=== PATIENT | male | born 1975 | race Caucasian/White ===

== ENCOUNTER → 2025-04-03 09:09 | Outpatient (REF) | payer BC, SELFPAY | LOC: RAD 09:09 | PROVIDERS: ATTENDING PHYSICIAN Thoracic Surgery (Cardiothoracic Vascular Surgery) | DX: Z01.810 Encounter for preprocedural cardiovascular examination (principal); I35.0 Nonrheumatic aortic (valve) stenosis | CPT/HCPCS: 75573; Q9967 ==

== ENCOUNTER 2025-04-08 06:22 | Day surgery (SDC) | payer BC, SELFPAY ==
[2025-04-08] VITALS (12 sets, daily range): BP systolic 112–149; BP diastolic 45–58; BMI 31.1
[2025-04-08] MEDS: NSS 270 ML IV (07:00)
--- NOTE | 2025-04-08 08:55 | ITS.CL.CATH ---
Adjuster - Catheterization
Cardiac Catheterization
Procedure Report:
CARDIAC CATHETERIZATION REPORT
Date of Procedure: 04/08/2025
Referring: Ignacio Valencia M.D.
INDICATION: Bicuspid aortic valve with severe aortic valve insufficiency, preop exam prior to SAVR.
PROCEDURE:
1. Left heart catheterization
2. Coronary angiography.
A total of 38 minutes of procedural/moderate sedation was utilized. An independent emergency medical technician basic was present to assist with and help manage the patient's level of consciousness and physiologic status.
ACCESS:
1. 6 [place]awk right bradycardia artery using a modified Seldinger technique under ultrasound guidance. The right radial artery is laterally displaced, nearly on the lateral aspect of his distal radius.
CATHETERS:
1. 5 [place] JR4.
2. 5 [place] JL 3.5.
HEMODYNAMIC DATA
Weight (kg): 89.8
AO (s/d/x, mmHg): 139/67/96
LV (s/x mmHg): 140/19 (A wave to 35)
AV gradient (x, mmHg): None.
LEFT VENTRICULOGRAPHY: Not performed.
CORONARY ANGIOGRAPHY
Dominance: Right.
Left Main: Normal size, bifurcating vessel. There is no coronary artery disease.
LAD: Large size vessel giving rise to 3 diagonals before supplying the apex. There is no coronary artery disease.
Ramus: Congenitally absent.
Circumflex: Small size, nondominant vessel that is essentially a single small obtuse marginal supplying the inferolateral base. There is no coronary artery disease.
RCA: Large, dominant artery with a large posterolateral arcade that functions as the circumflex distribution. The origin of the artery is anterior. There is no coronary artery disease.
INTERVENTION(S)
None.
Closure Device: Vascular band.
Radiation (mGy): 304.96
DAP (cm2.Gy): 27.5237
Fluoroscopy time (minutes): 2.5
CONCLUSIONS
1. Right dominant circulation with an anterior origin of the right coronary artery and a large posterolateral arcade that functions as the circumflex distribution. There is no coronary artery disease.
2. Moderately elevated filling pressures (LVEDP = 19 mmHg at 89.8 kg) with evidence of diastolic dysfunction (A wave to 35 mmHg).
RECOMMENDATIONS:
1. Expectant management after cardiac catheterization via right radial approach.
2. Limited weight bearing on the right wrist for one week.
3. Routine preoperative management prior to surgical aortic valve replacement.
4. Start furosemide 40 mg daily with preoperative labs on 04/12/2025.
5. The patient would benefit from SGLT2 inhibitors, but this should be deferred until after his SAVR.
Copy to: Ignacio Valencia M.D., David Duarte D.O.
Samuel Lim DO, FACC, FACP
[2025-04-08] MEDS: NSS 1000 IV (09:05)
== END 2025-04-08 11:30 | disposition home or self-care (01) ==
LOC: CATH 06:22
PROVIDERS: ATTENDING PHYSICIAN Internal Medicine Cardiovascular Disease; FAMILY PHYSICIAN Family Medicine
DX: I35.1 Nonrheumatic aortic (valve) insufficiency (principal); Z79.899 Other long term (current) drug therapy
CPT/HCPCS: 99152; 99153; 93458; C1769; C1894; Q9967

== ENCOUNTER 2025-04-15 04:53 | Inpatient (IN) | payer BC, SELFPAY ==
[2025-04-04 08:23] VITALS: BMI 30.7
[2025-04-04 09:09] LABS: Urine Character Clear (Clear)
[2025-04-04 09:13] LABS: Hematocrit 48.3 % (39.0-52.0); Hemoglobin 17.1 g/dL (13.0-18.0); Mean Corp Hgb Conc. 35.4 g/dL (33.0-37.0); Mean Corpuscular Volume 84.0 fL (80.0-94.0); Nucleated Red Blood Cells % 0 % (-); Platelet Count 146 10^3/uL (130-400); Red Cell Dist. Width 12.9 % (11.5-14.5)
[2025-04-04 09:35] LABS: Glycohemoglobin (HgbA1c) 5.3 % (4.0-5.9)
[2025-04-04 09:38] LABS: INR 0.86; PT 12.2 Sec (11.4-14.6)
[2025-04-04 09:59] LABS: ALT (SGPT) 50 U/L (0-50); AST (SGOT) 29 U/L (17-59); Albumin 4.7 g/dl (3.5-5.0); Alkaline Phosphatase 52 U/L (38-126); Blood Urea Nitrogen 31 mg/dl (9-20); Calcium 9.4 mg/dl (8.4-10.2); Carbon Dioxide 28 mmol/L (22-30); Chloride 104 mmol/L (98-107); Estimated Creatinine Clearance 87 ml/min; Glucose 77 mg/dl (70-99); Potassium 4.5 mmol/L (3.5-5.1); Sodium 137 mmol/L (135-145); Total Protein 7.2 g/dl (6.3-8.2); eGFR > 60.00
--- NOTE | 2025-04-04 10:11 | CM ---
Chart reviewed. Met with the patient and in PAT, reviewed preoperative and postoperative instructions and restrictions, along with showering guidelines. Gave patient 2 soaps. Patient is agreeable to a home visit by CT Transitional RN.
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 Plan is for the patient to return home with CT Transitional RN. CM to follow
[2025-04-04 11:17] LABS: Urine Red Blood Cell 0-2 /HPF (0-2); Urine Squamous Cell 0-2 /LPF (Few)
[2025-04-15] VITALS (14 sets, daily range): BP systolic 90–159; BP diastolic 61–83; BMI 28.4
[2025-04-15] MEDS: LOPRESSOR 25 MG PO (06:06)
[2025-04-15] MEDS: MAGNESIUM OXIDE 400 MG PO (06:06)
[2025-04-15] MEDS: PROTONIX 40 MG PO (06:06)
[2025-04-15] MEDS: BACTROBAN 2% OINTMENT 1 APPLIC NASAL ×2 (06:11→20:14)
--- NOTE | 2025-04-15 06:33 | W.CVOR.SURPR ---
CVOR Surgeon Immed Pre Op
-
I have examined this patient prior to performance of the scheduled procedure.
The patient's condition is unchanged from the time of the dictated/written History and
Physical and the patient is able to undergo the scheduled procedure.
--- NOTE | 2025-04-15 06:34 | PTCARENOTE ---
Patient admitted to CVICU room 2261. pt confirmed 2 showers at home. pt clipped and prepped for CVOR. Pre-op meds given. Pre-op education provided. area development manager to CVOR.
[2025-04-15 07:34] LABS: ACT+ - POC 126 Seconds (82-134)
[2025-04-15 08:21] LABS: Urine Character Clear (Clear)
[2025-04-15 08:29] LABS: Urine Red Blood Cell 0-2 /HPF (0-2); Urine White Cell 0-2 /HPF (0-5)
[2025-04-15 09:10] LABS: ACT+ - POC 732 Seconds (82-134)
--- NOTE | 2025-04-15 09:20 | CM ---
Chart reviewed. Patient is in the OR today. Patient is independent of ADLS, lives with his in a 2 STH, 2 ELY, 0 DME. Plan is for the patient to return home with CT Transitional RN. CM to follow
[2025-04-15 09:38] LABS: B.E. - POC -2.1 mmol/L; Glucose - POC 101 mg/dl (70-99); HCO3 - POC 24 mmol/L (21-28); Hematocrit - POC 37 % PCV (42-52); Hemodilution- POC No; Hemoglobin Calculated - POC 12.4; Ionized Calcium - POC 1.22 mmol/L (1.15-1.33); Lactate - POC 1.04 mmol/L (0.36-0.75); O2 Saturation %Calculated-POC 98.6 % (94-98); PCO2 - POC 43 mmHg (35-48); PO2 - POC 124 mmHg (83-108); POC Comment PRE; Potassium - POC 3.7 mmol/L (3.5-5.1); Sodium - POC 136 mmol/L (136-145); Specimen Type - POC Arterial; pH - POC 7.35 (7.35-7.45)
[2025-04-15 10:02] LABS: B.E. - POC 1.4 mmol/L; Glucose - POC 112 mg/dl (70-99); HCO3 - POC 25 mmol/L (21-28); Hematocrit - POC 31 % PCV (42-52); Hemodilution- POC Yes; Hemoglobin Calculated - POC 10.6; Ionized Calcium - POC 0.97 mmol/L (1.15-1.33); Lactate - POC 1.33 mmol/L (0.36-0.75); O2 Saturation %Calculated-POC 99.8 % (94-98); PCO2 - POC 35 mmHg (35-48); PO2 - POC 200 mmHg (83-108); POC Comment CPB; Potassium - POC 6.3 mmol/L (3.5-5.1); Sodium - POC 135 mmol/L (136-145); Specimen Type - POC Arterial; pH - POC 7.46 (7.35-7.45)
[2025-04-15 10:06] LABS: ACT+ - POC > 1003 Seconds (82-134)
[2025-04-15 10:27] LABS: B.E. - POC 1.3 mmol/L; Glucose - POC 148 mg/dl (70-99); HCO3 - POC 25 mmol/L (21-28); Hematocrit - POC 37 % PCV (42-52); Hemodilution- POC Yes; Hemoglobin Calculated - POC 12.6; Ionized Calcium - POC 1.07 mmol/L (1.15-1.33); Lactate - POC 1.63 mmol/L (0.36-0.75); O2 Saturation %Calculated-POC 99.7 % (94-98); PCO2 - POC 37 mmHg (35-48); PO2 - POC 198 mmHg (83-108); POC Comment CPB; Potassium - POC 5.6 mmol/L (3.5-5.1); Sodium - POC 137 mmol/L (136-145); Specimen Type - POC Arterial; pH - POC 7.45 (7.35-7.45)
[2025-04-15 10:39] LABS: ACT+ - POC 628 Seconds (82-134)
[2025-04-15 10:49] LABS: B.E. - POC -0.5 mmol/L; Glucose - POC 143 mg/dl (70-99); HCO3 - POC 24 mmol/L (21-28); Hematocrit - POC 38 % PCV (42-52); Hemodilution- POC Yes; Hemoglobin Calculated - POC 12.8; Ionized Calcium - POC 1.08 mmol/L (1.15-1.33); Lactate - POC 1.80 mmol/L (0.36-0.75); O2 Saturation %Calculated-POC 99.8 % (94-98); PCO2 - POC 36 mmHg (35-48); PO2 - POC 206 mmHg (83-108); POC Comment WARM; Potassium - POC 4.7 mmol/L (3.5-5.1); Sodium - POC 140 mmol/L (136-145); Specimen Type - POC Arterial; pH - POC 7.43 (7.35-7.45)
[2025-04-15 11:00] LABS: ACT+ - POC 623 Seconds (82-134)
[2025-04-15 11:36] LABS: B.E. - POC -1.5 mmol/L; Glucose - POC 112 mg/dl (70-99); HCO3 - POC 24 mmol/L (21-28); Hematocrit - POC 37 % PCV (42-52); Hemodilution- POC Yes; Hemoglobin Calculated - POC 12.7; Ionized Calcium - POC 1.13 mmol/L (1.15-1.33); Lactate - POC 2.81 mmol/L (0.36-0.75); O2 Saturation %Calculated-POC 99.9 % (94-98); PCO2 - POC 45 mmHg (35-48); PO2 - POC 278 mmHg (83-108); POC Comment WARM; Potassium - POC 4.4 mmol/L (3.5-5.1); Sodium - POC 142 mmol/L (136-145); Specimen Type - POC Arterial; pH - POC 7.34 (7.35-7.45)
[2025-04-15 11:41] LABS: ACT+ - POC 118 Seconds (82-134)
--- NOTE | 2025-04-15 12:04 | W.IMMPOSTOP ---
Addendum entered and electronically signed by Ignacio Valencia MD 04/15/25 13:19:
[id number]
Original Note:
Surgical Immed Post Op Note
-
CARDIAC SURGERY OPERATIVE NOTE:
Preoperative Dx:
Severe aortic insufficiency
Bicuspid aortic valve
Postoperative Dx:
Same
Procedures:
1) Median sternotomy
2) ELAA (35mm AtriClip)
3) AVR (#25 On-X)
Surgeon:
Ignacio Valencia M.D.
Assistants:
Vaishali Thompson P.A.-C.; certified nursing assistant throughout
Mendoza Siegel P.A.-C.; [id number] sternotomy closure
Anesthesia:
Jhonny Marroquin C.R.N.A. and Mo Soriano M.D.
Perfusion:
Db BlackP,; XC: 83min, CPB 110min
Findings:
BAV w/ Omar - Type 1 w/ R/L fusion
Significant bileaflet prolapse w/ fused leaflet w/ slightly more pronounced prolapse
No significant calcifications
Minor aortic dilation w/ normal gross aortic wall appearance/thickness
Small ADITYA w/ 'windsock' morphology - successfully occluded at its base - confirmed on postoperative ZAKI assessment
Post-ZAKI: LVEF 45% (unchanged from baseline) w/o RWMA, dilated ventricle, normal RV, trace MR, well-seated valve w/ typical mechanical valve washing jets, mean gradient 10mmHg @ CI 3.0, small PFO
Complications:
None
Transfusions:
None
Implants:
On-X 25mm Mechanical AVR (REF: TERRANCE, SN: [id number])
Bipolar epicardial pacing wire x 1
Sternal wires x 7
Sternal 'X' plate w/ 4 - 12mm and 4 - 14mm screws
Sternal 'Square' plate w/ 4 - 10mm screws
Condition:
57 sinus (-0.5/1.1), 95/62, 33/19, CVP 16, CO/CI: 6.2/3.1
GTTS: levophed 2, precedex 0.6
Stable/guarded to CVICU
--- NOTE | 2025-04-15 12:25 | CON.INTV ---
Consultation
Consultation Request
Date/Time Consultation Requested: 04/15/25
Date/Time Consultation Performed: 04/15/25
Performing Provider: Scar
Reason for Consultation: CVICU
Medical History
-
History of Present Illness:
50-year-old male with previous history of hypertension, hyperlipidemia presenting to [facility] on 1011 for palpitations and left arm discomfort with exertion, elevated troponins ruled in for NSTEMI and also noted to have severe aortic insufficiency.
Underwent AVR on 04/15/2025 and postoperatively transferred to CVICU for further management.
Past Medical History
Past Medical History: Other (see list below)
Allergies / Home Medications
Allergies
Allergy/AdvReac Type Severity Reaction Status Date / Time
No Known Allergies Allergy Verified 04/08/25 06:45
Home Medications
�Medication �Instructions �Recorded �Confirmed �Last Taken �Type
losartan 25 mg tablet 25 mg PO QPM Blood Pressure 04/02/25 04/08/25 04/07/25 14:00 History
Red Yeast Rice Gummy 2 gummy PO DAILY 04/08/25 04/08/25 04/07/25 14:00 History
furosemide 40 mg tablet (Lasix) 40 mg PO DAILY #30 tabs 04/08/25 Unknown Rx
Review of Systems
-
History Source: Patient
All other systems: Negative unless noted
Vitals / Labs / Diagnostic Testing
Vital Signs
Pulse BP Pulse Ox
66 150/66 96
04/15/25 06:06 04/15/25 06:06 04/15/25 06:00
Diagnostic Testing:
Physical Exam
-
HEENT: Normocephalic, Anicteric and Moist Mucous Membranes
Cardiovascular: S1/S2 and Regular Rhythm
Respiratory: Clear, Non-Labored Respirations and Other (ETT, chest tube in place)
GI: Soft, Non Distended and Non Tender
Neurology: Other (sedated/lethargic )
Skin: Warm, Dry and Good Color
General: Comfortable and Other (NAD)
Assessment
-
50-year-old male with previous history of hypertension, hyperlipidemia presenting to [facility] on 1011 for palpitations and left arm discomfort with exertion, elevated troponins ruled in for NSTEMI and also noted to have severe aortic insufficiency.
Underwent AVR on 04/15/2025 and postoperatively transferred to CVICU for further management.
Severe aortic insufficiency s/p AVR 04/15/25
Fatigue/CLARK
Conditions present SIDER
HTN
HLD
Plan
S/p AVR POD #0
Titrate off pressors per protocol
ECHO reviewed with normal function
PA catheter readings reviewed
Management of chest tubes per primary service
Intubated/sedated, initiate SAT when able
Pain control
RASS goal of 0 to -1
Intubated for procedure, SBT trial when patient able to spontaneously breath
Current vent settings SIMV 500/14/40/5+
ABG(s) reviewed
CXR with no obvious opacities/infiltrates, low lung volumes, ETT in good position, lines/tubes in place
Extubate per protocol
Maintain supplement oxygen as needed
No prior history of pulmonary disease
Prior PFTs for review--normal function
Can add nebulizers if needed
Aspiration precautions
Encouraged incentive spirometry, OOB/ambulation/early mobility
Advance diet as tolerated following extubation
GI prophylaxis if indicated for mechanical ventilation >48 hours
Monitor critical I/O's
Hines/chest tube output
Hb/platelets postoperatively stable
Trend CBC for now
Can transfuse if indicated for Hb <7, plt <50 in surgical patients
DVT prophylaxis including SCDs
Insulin protocol initiated and ongoing
Transition to SQ/off as indicated per team
We will follow
Diagnostic Data
Chest X-Ray:
CT Scan: CHEST 04/03/25- Chest: No pulmonary nodules, areas of airspace disease, pleural effusions, pericardial effusions or enlarged lymph nodes in the thorax.
Echo:
[facility] 04/08/25- 1. Right dominant circulation with an anterior origin of the right coronary artery and a large posterolateral arcade that functions as the circumflex distribution. There is no coronary artery disease.
2. Moderately elevated filling pressures (LVEDP = 19 mmHg at 89.8 kg) with evidence of diastolic dysfunction (A wave to 35 mmHg).
PFT's: 04/04/25: FEV1 3.85 L 103%, FVC 4.47 L 95%, ratio 86--normal
Reports and relevant images were personally reviewed.
Critical Care time 50 mins -- The patient is admitted for acute critical illness for the treatment of vital organ failure and/or prevention of further life-threatening conditions. Total care includes time spent in review of history, physical exam,
medications, hemodynamic/ventilator parameters, laboratory data, imaging and discussion with house staff, pharmacy, respiratory therapy, sheet manager, and nursing.
--- NOTE | 2025-04-15 12:30 | W.PN.CD ---
Addendum entered and electronically signed by Cecil Helm MD 04/15/25 18:43:
I reviewed and agree with the note by SILVANO and it accurately reflects our care.
I saw and evaluated the patient, and I provided the substantive portion of the medical decision making. My assessment and plan is below:
50-year-old man with hypertension, hyperlipidemia, and bicuspid aortic valve with severe aortic regurgitation who underwent surgical aortic valve replacement with Dr. Valencia today. He is doing fair postoperatively. Already extubated. He is still
agitated and somewhat somnolent from anesthesia. Spoke to his at bedside.
Physical exam: RRR, no murmurs, clear lungs anteriorly, no lower extremity edema, sternotomy well adhesed with no erythema or purulent drainage
Telemetry: NSR, no arrhythmias
Severe aortic regurgitation s/p AVR: Continue routine postoperative care per CT surgery. Continue aspirin and prophylactic amiodarone. Warfarin initiation per CT surgery.
We will continue to follow along with you.
Original Note:
Today's Communication / Plan
-
Extubation per CT surgery.
Follow telemetry.
Impression / Plan
-
I/P: 50M with HTN, HLD, & bicuspid aortic valve with severe aortic valve insufficiency presents for SAVR
Primary air traffic control manager: Dr. Lim
Severe AI s/p #25 On-X SAVR 04/15/[address] Valencia
- Post ZAKI LVEF 45% (unchanged from baseline) without RWMA, dilated ventricle, normal RV with MG 10 mmHg and small PFO
- EKG: Sinus bradycardia with first-degree AV block and LBBB, LBBB new
- Follow telemetry
- Initiation of warfarin per surgery
- Education on antibiotic prophylaxis
Essential hypertension, losartan on hold preoperatively, follow
Hypercholesterolemia, no CAD on cardiac catheterization
SUBJECTIVE:
Patient remains intubated. Operative report reviewed.
Physical Exam
Vital Signs/Labs
Vital Signs
Pulse BP Pulse Ox
66 150/66 96
04/15/25 06:06 04/15/25 06:06 04/15/25 06:00
04/14/25 04/15/25 04/16/25
06:59 06:59 06:59
Actual Weight 186 lb 15.232 oz
04/04/25 08:33
04/04/25 08:33
PT 12.2 Sec (11.4-14.6) 04/04/25 08:33
INR 0.86 04/04/25 08:33
Physical Exam
Constitutional: No acute distress and Comfortable
EENT: Anicteric and Moist mucous membranes
Cardiovascular: Rhythm & rate is regular and S1S2 is normal
Respiratory: Lungs clear to auscul. and Other (mechanical ventilation)
GI: Soft, Distention absent, Flat, Non tender and Normal bowel sounds
Neuro/Psych: Other (sedated, nods head)
Other: Skin (warm and dry without edema)
Data Reviewed
-
Date of Service: April 15, 2025
[2025-04-15 12:42] LABS: Glucose - Point of Care 114 mg/dl (70-99)
--- NOTE | 2025-04-15 12:46 | W.PN.UPDATE ---
Update Note
Progress Note Update
50 y/o male with a bicuspid aortic valve presents electively on 04/[address]R with Dr. Valencia
NEURO: sedated on precedex, pupils +2mm B/L
RESP: #8OT @25cm> 14/500/40/5 Lungs clear B/L. 2 mediastinal (20cc on arrival) chest tubes to -20cm suction. Sanguineous drainage
CV: RRR +S1, S2, no S3, no rub, no murmur. Dermabond to median sternotomy. RIJ w/[place]
ABD: round, soft, no BS
EXT: no edema, +2/4 DP pulses B/L, no femoral bruit, left radial A-line intact
: Hines with clear yellow urine
A/P: POD #0 s/p AVR #25 On-X and #35 LAAC
ZAKI: EF LVEF 45%
- wean and extubate
- Monitor CT and urine output
- Follow up labs and CXR
- Wean levophed for maps >65/SBP goal 90-110
- Will start ASA tonight and eventual coumadin
- EKG pending and will send to cards
- Cards consulted
- F/u CXR
- will need instruction regarding antibiotic prophylaxis for dental and invasive procedures
# acute surgical blood loss anemia-expected
- trend CBC
[2025-04-15 12:47] LABS: B.E. -3.0 mmol/L; HCO3 22.7 mmol/L (21-28); O2 Saturation % 98.6 % (94-98); PCO2 42 mmHg (35-48); PO2 105 mmHg (83-108); Potassium 3.8 mMOL/L (3.5-5.1); Sodium 137 mMOL/L (136-145)
[2025-04-15 12:49] LABS: Hematocrit 39.8 % (39.0-52.0); Hemoglobin 14.4 g/dL (13.0-18.0); Platelet Count 135 10^3/uL (130-400)
[2025-04-15 12:55] LABS: ACT+ - POC > 1003 Seconds (82-134)
[2025-04-15 12:57] LABS: INR 1.45; PT 17.8 Sec (11.4-14.6)
[2025-04-15 12:58] LABS: APTT 28.8 Sec (23.4-35.0)
[2025-04-15] MEDS: KCL 50 IV ×2 (13:00→14:52)
[2025-04-15 13:13] LABS: Blood Urea Nitrogen 29 mg/dl (9-20); Estimated Creatinine Clearance 87 ml/min; Glucose 110 mg/dl (70-99); Magnesium 3.5 mg/dl (1.6-2.3)
--- NOTE | 2025-04-15 13:30 | PTCARENOTE ---
Patient received from CVOR at 1240; Sedated and intubated; SB on monitor w/ 1st degree block; VSS; DP and radial pulses present; Lungs diminished at bases; ETT size 8 positioned and secured at 24 cm Right lip; Ventilator settings SIMV
12/550/5/FiO2 40%; CTx2 to -20 cm wall suction draining bloody drainage - no air leak, tidaling , or crepitus noted; Hypoactive BS; Hines catheter in place draining clear, yellow urine; Sternal incision covered w/ aquacel dressing w/ minimal
drainage, R radial A-line in place, Phillip-rosemarie floated to 40 cm in RIJ Cordis - all lines zeroed and leveled; PIVx1; Levo/insulin/precedex infusing - see nursing flowsheets for further details; see nursing documentation for further details.
[2025-04-15 14:14] LABS: Glucose - Point of Care 148 mg/dl (70-99)
[2025-04-15 15:14] LABS: Glucose - Point of Care 130 mg/dl (70-99)
[2025-04-15 15:25] LABS: B.E. - POC -3.3 mmol/L; Blood Urea Nitrogen - POC 27 mg/dl (3-120); Chloride - POC 111 mmol/L (96-111); Creatinine - POC 1.24 mg/dl (0.3-1.0); Glucose - POC 132 mg/dl (70-99); HCO3 - POC 22 mmol/L (21-28); Hematocrit - POC 40 % PCV (42-52); Hemodilution- POC Yes; Hemoglobin Calculated - POC 13.6; Ionized Calcium - POC 1.22 mmol/L (1.15-1.33); Lactate - POC 3.57 mmol/L (0.36-0.75); O2 Saturation %Calculated-POC 97.8 % (94-98); PCO2 - POC 40 mmHg (35-48); PO2 - POC 106 mmHg (83-108); Potassium - POC 4.6 mmol/L (3.5-5.1); Sodium - POC 144 mmol/L (136-145); Specimen Type - POC Arterial; pH - POC 7.35 (7.35-7.45)
[2025-04-15] MEDS: DILAUDID 0.5 MG IV ×2 (16:07→20:28)
[2025-04-15] MEDS: OFIRMEV 100 IV (16:15)
[2025-04-15 16:36] LABS: Glucose - Point of Care 117 mg/dl (70-99)
[2025-04-15 16:47] LABS: Hematocrit 37.0 % (39.0-52.0); Hemoglobin 13.5 g/dL (13.0-18.0); Platelet Count 131 10^3/uL (130-400)
[2025-04-15] MEDS: NSS 500 IV (16:59)
[2025-04-15 17:25] LABS: Glucose - Point of Care 120 mg/dl (70-99)
--- NOTE | 2025-04-15 18:29 | PTCARENOTE ---
PT placed on Cpap @ 1450, Extubated @ 1540 AAOx3 following commands; see worklist for detailed assessment
[2025-04-15] MEDS: NEURONTIN PO ×2 (18:52→21:57)
--- NOTE | 2025-04-15 19:00 | PTCARENOTE ---
repoert received from previous RN, walking rounds done. pt in bed, AAOx4, @ bedside. pt c/o sternal incision pain, see MAR for PRN med administration. SR w 1st degree AVB on monitor, HR 60s. +peripheral pulses. heart tones clear w click
present. no edema noted. L radial art line in place. SBP 120s. B/L breath sounds present. POX 97% on 2LNC. IS encouraged. CT x2 intact to -20cm wall suction, drainage WNL, no air leak present. hypoactive BS present. pt c/o intermittent nausea. shepard
catheter in place draining CYU, UO adequate. all surgical sites stable. RIJ cordis + swan in place. last CI 2.75. CVP ~ 7-10. PAP 20s/10s. see worklist for full assessment, VS, and interventions. turning/repositioning pt Q2H and as needed.
[2025-04-15 19:07] LABS: Glucose - Point of Care 140 mg/dl (70-99)
[2025-04-15] MEDS: ZOFRAN 4 MG IV (19:44)
[2025-04-15] MEDS: SENOKOT PO (20:14)
[2025-04-15] MEDS: ANCEF 5 IV (20:14)
[2025-04-15 20:33] LABS: Glucose - Point of Care 109 mg/dl (70-99)
[2025-04-15] MEDS: SODIUM BICARBONATE 50 MEQ IV (21:06)
[2025-04-15] MEDS: DILAUDID 0.25 MG IV (21:50)
[2025-04-15] MEDS: TYLENOL PO (21:58)
[2025-04-15 22:27] LABS: Glucose - Point of Care 108 mg/dl (70-99)
--- NOTE | 2025-04-15 23:00 | PTCARENOTE ---
no acute changes, pt VSS. SR/SB w 1st degree AVB, HR 50s-60s. +peripheral pulses. SBP 120s. POX 96% on 2LNC. CT output and UO WNL. all surgical sites stable. last CI 2.99. Insulin gtt maintained per glycemic protocol. turning/repositioning pt Q2H
and as needed.
[2025-04-16] VITALS (31 sets, daily range): BP systolic 97–152; BP diastolic 59–101; PULSE 72; O2SAT 97; BMI 28.7
[2025-04-16] MEDS: DILAUDID 0.5 MG IV ×2 (00:09→03:05)
[2025-04-16 00:13] LABS: Glucose - Point of Care 119 mg/dl (70-99)
[2025-04-16 02:14] LABS: Glucose - Point of Care 114 mg/dl (70-99)
[2025-04-16 02:46] LABS: Hematocrit 36.7 % (39.0-52.0); Hemoglobin 13.1 g/dL (13.0-18.0); Mean Corp Hgb Conc. 35.5 g/dL (33.0-37.0); Mean Corpuscular Volume 84.8 fL (80.0-94.0); Platelet Count 125 10^3/uL (130-400); Red Cell Dist. Width 12.7 % (11.5-14.5)
[2025-04-16 02:50] LABS: INR 1.13; PT 14.6 Sec (11.4-14.6)
[2025-04-16 03:00] LABS: Blood Urea Nitrogen 32 mg/dl (9-20); Calcium 8.3 mg/dl (8.4-10.2); Carbon Dioxide 24 mmol/L (22-30); Chloride 110 mmol/L (98-107); Estimated Creatinine Clearance 109 ml/min; Glucose 114 mg/dl (70-99); Magnesium 2.5 mg/dl (1.6-2.3); Potassium 4.4 mmol/L (3.5-5.1); Sodium 138 mmol/L (135-145); eGFR > 60.00
--- NOTE | 2025-04-16 03:00 | PTCARENOTE ---
no acute changes, pt VSS. SR/SB w 1st degree AVB, HR 50s-60s. SBP 100s-120s. POX 94% on 2LNC. CT output and UO WNL. all surgical sites stable. last CI 3.43. Insulin gtt maintained per glycemic protocol. turning/repositioning pt Q2H and as needed. AM
labs drawn and sent. AM EKG done. pt resting between care.
[2025-04-16] MEDS: ANCEF 5 IV ×2 (03:05→13:19)
--- NOTE | 2025-04-16 03:42 | W.PN.CT ---
Today's Communication / Plan
-
Plan:
-No major issues overnight. Hemodynamically and neurologically intact
-Pt was successfully extubated yesterday 04/15/25 @ 1540
-Weaned off Levophed gtt last night, on insulin gtt per protocol
-Last CI 3.14, MVO2 69.6%, U/O since OR 1000 mL
-Monitor chest tube drainage: 2 meds 245/380. F/U cxr
-Maintain temporary PW
-Will initiate Coumadin later tonight vs tomorrow, will likely bridge with heparin tomorrow
-Will monitor INR
-Monitor plts, 125K this AM
-Held Amiodarone last night d/t HR 50's. Will decrease to 200 mg BID
-Will hold AM dose of BB given postop hypotension
-Cont. current meds (ASA, Amiodarone, Toprol XL)
-Mag oxide is 2.5, will hold mag oxide
-D/C'd [place] and A-line this AM @ 0430
-Will D/C shepard catheter this AM @ 0600
-Will D/C insulin gtt today per protocol and transition to tele phase
-Maintain cordis
-Encourage use of IS
-Wean off O2 as tolerated
-OOB into chair/Ambulate
Assessment / Plan
-
Assessment:
-S/P Median sternotomy/AVR (#25 On-X)/ELAA (35mm AtriClip), by Dr. Valencia, 04/15/25, pod#1
-Bicuspid aortic valve/Severe AI
-LVEF 42% per intraop ZAKI
-HTN
-HLD
-Former tobacco use
-S/p cardiac cath, 04/08/25
-Acute postop blood loss/Anemia (stable with blood transfusion)
-Acute postop thrombocytopenia (stable, no active bleed)
-Acute postop atelectasis
-Acute postop hypovolemia with subsequent hypervolemia
Discussed patient care with: Cardiology, Nursing, Respiratory Therapy, Pharmacy and Care Team
Subjective
Procedure
S/P Median sternotomy/AVR (#25 On-X)/ELAA (35mm AtriClip), by Dr. Valencia, 04/15/25
-
Date of Service: April 16, 2025
Pt c/o incisional pain, otherwise feel well
Objective Data
-
Lab Results
04/16/25 02:10
04/16/25 02:10
PT 14.6 Sec (11.4-14.6) 04/16/25 02:10
INR 1.13 04/16/25 02:10
APTT 28.8 Sec (23.4-35.0) 04/15/25 12:39
Vital Signs
Vital Signs
Temp Pulse Resp BP Pulse Ox
98.0 F 58 17 109/67 92
04/16/25 03:00 04/16/25 03:00 04/16/25 03:00 04/16/25 03:00 04/16/25 02:45
CT Intake/Output/Weight
04/15/25 04/15/25 04/16/25
06:59 18:59 06:59
Intake Total 298.9 / 298.9
Output Total 555 / 1285 730 / 1285
Balance -555 / -986.1 -431.1 / -986.1
SaO2: 92 (2L)
Physical Exam
-
General: Awake, Oriented and AOx3
Cardiovascular: Regular rate & rhythm, No Murmurs, No Rub and No Gallop
Respiratory: Decreased Breath Sounds (at bases, otherwise clear)
Sternum: Stable
Incision: Clean, Dry, Intact and Dressing Intact
Extremities: No Edema
Data Reviewed
-
Lab Results: Results Reviewed
Medications: Active Meds Reviewed
Chest X-Ray: Report Reviewed and Image Reviewed
ECG: Report Reviewed and Image Reviewed
[2025-04-16] MEDS: CALCIUM GLUCONATE 100 IV (03:58)
[2025-04-16 04:10] LABS: Glucose - Point of Care 108 mg/dl (70-99)
--- NOTE | 2025-04-16 04:15 | PTCARENOTE ---
left radial art line and RIJ swan d/c'd per orders without incident.
[2025-04-16 06:06] LABS: Glucose - Point of Care 112 mg/dl (70-99)
[2025-04-16] MEDS: TYLENOL 975 MG PO ×3 (06:08→22:45)
[2025-04-16] MEDS: ROXICODONE 5 MG PO ×4 (06:09→20:01)
[2025-04-16] MEDS: DILAUDID 0.25 MG IV ×2 (06:09→10:06)
--- NOTE | 2025-04-16 07:10 | W.PN.ANS.POP ---
Anesthesia Post Operative
- Anesthesia Post Op Note
Vital Signs Stable-See Nursing Note: Yes
Airway Patent: Yes
Adequate Pain Control: Yes
Change in Mental Status: No
Current Postoperative Nausea & Vomiting: No
Anesthesia Complications: No
General Anesthetic Recall: No
Unplanned Admission: No
Post Op Hydration Adequate: Yes
--- NOTE | 2025-04-16 08:00 | PTCARENOTE ---
pt received from previous RN, oriented, OOB in chair. SR on the monitor, HR 60s. V wire insulated. SBP 120s. palpable pulses. pt on 2LNC, 96-98% POX. lungs diminished in bases. IS encouraged, 1250ml. CTx2, no air leak or crepitus noted. pt abdomen
s/n, denies n/v. +BS. tolerating clears. DTV post Hines removal. sternal Aquacel intact. chest tube site c/d/i. RIJ Cordis maintained. PIV. insulin gtt running as ordered. updated. see worklist for VS, I&O, and assessment.
[2025-04-16 08:05] LABS: Glucose - Point of Care 114 mg/dl (70-99)
--- NOTE | 2025-04-16 08:29 | W.PN.INTV ---
Today's Communication / Plan
Recommendations
Doing well post extubation, stable on RA
No new complaints
Further postop management per team
PT/OT, IS encouraged
Transfer to tele once off gtts, we will sign off upon transfer
Assessment
-
50-year-old male with previous history of hypertension, hyperlipidemia presenting to [facility] on 1011 for palpitations and left arm discomfort with exertion, elevated troponins ruled in for NSTEMI and also noted to have severe aortic insufficiency.
Underwent AVR on 04/15/2025 and postoperatively transferred to CVICU for further management.
Severe aortic insufficiency s/p AVR 04/15/25
Fatigue/CLARK
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
HTN
HLD
Plan
S/p AVR POD #1
Titrated off pressors per protocol
ECHO reviewed with normal function
PA catheter readings reviewed
Management of chest tubes per primary service
Pain control
RASS goal of 0 to -1
Intubated for procedure, extubated and doing well
ABG(s) reviewed
CXR with stable postop changes
Stable on RA
No prior history of pulmonary disease
Prior PFTs for review--normal function
Can add nebulizers if needed
Aspiration precautions
Encouraged incentive spirometry, OOB/ambulation/early mobility
Diet advancement as tolerated
GI prophylaxis if indicated for mechanical ventilation >48 hours
Monitor critical I/O's
Hines/chest tube output
Hb/platelets postoperatively stable
Trend CBC for now
Can transfuse if indicated for Hb <7, plt <50 in surgical patients
DVT prophylaxis including SCDs
Insulin protocol - Transition to SQ/off as indicated per team
Diagnostic Data
Chest X-Ray:
CT Scan: CHEST 04/03/25- Chest: No pulmonary nodules, areas of airspace disease, pleural effusions, pericardial effusions or enlarged lymph nodes in the thorax.
Echo:
[facility] 04/08/25- 1. Right dominant circulation with an anterior origin of the right coronary artery and a large posterolateral arcade that functions as the circumflex distribution. There is no coronary artery disease.
2. Moderately elevated filling pressures (LVEDP = 19 mmHg at 89.8 kg) with evidence of diastolic dysfunction (A wave to 35 mmHg).
PFT's: 04/04/25: FEV1 3.85 L 103%, FVC 4.47 L 95%, ratio 86--normal
Reports and relevant images were personally reviewed.
Critical Care time 35 mins -- The patient is admitted for acute critical illness for the treatment of vital organ failure and/or prevention of further life-threatening conditions. Total care includes time spent in review of history, physical exam,
medications, hemodynamic/ventilator parameters, laboratory data, imaging and discussion with house staff, pharmacy, respiratory therapy, rn hemo dialysis, and nursing.
Subjective Dataa
Subjective Data
Date of Service:
Date of Service: April 16, 2025
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
Subjective:
Doing well post extubation, no new complaints
Stable on RA
Objective Data
Data Reviewed
Vital Signs / I&O / Oxygen:
Vital Signs
Temp Pulse Resp BP Pulse Ox
97.8 F 74 18 125/75 97
04/16/25 04:00 04/16/25 08:00 04/16/25 08:00 04/16/25 08:00 04/16/25 08:22
Intake and Output
04/15/25 04/16/25 04/17/25
06:59 06:59 06:59
Intake Total 375.8 / 375.8 12.3 / 12.3
Output Total 1675 / 1675 60 / 60
Balance -1299.2 / -1299.2 -47.7 / -47.7
SaO2 97
Nasal Cannula flow liters per 2
minute
Physical Exam
General: Comfortable and Other (NAD)
HEENT: Normocephalic, Anicteric and Moist Mucous Membranes
Cardiovascular: S1-S2 and Regular Rhythm
Respiratory: Clear, Non-Labored Respirations and Chest Tube
GI: Soft, Non Distended and Non Tender
Neurology: Awake, Alert, Oriented and No Motor Deficits
Skin: Warm, Dry and Good Color
Labs/Micro/Reports
Lab Data
04/16/25 02:10
04/16/25 02:10
Laboratory Results
04/15/25 04/16/25
12:39 02:10
PT 17.8 H 14.6
INR 1.45 1.13
APTT 28.8
pH 7.34 L
pCO2 42
pO2 105
HCO3 22.7
O2 Delivery Level
[2025-04-16] MEDS: SENOKOT 8.6 MG PO ×2 (08:34→20:01)
[2025-04-16] MEDS: NEURONTIN 100 MG PO ×3 (08:34→22:45)
[2025-04-16] MEDS: TOPROL XL 12.5 MG PO (08:34)
[2025-04-16] MEDS: PROTONIX 40 MG PO (08:34)
[2025-04-16] MEDS: LOW STRENGTH ASPIRIN 81 MG PO (08:34)
[2025-04-16] MEDS: PACERONE 200 MG PO ×2 (08:35→20:01)
[2025-04-16] MEDS: FLEXERIL 5 MG PO (08:35)
[2025-04-16] MEDS: BACTROBAN 2% OINTMENT 1 APPLIC NASAL ×2 (08:35→20:02)
[2025-04-16] MEDS: LIDOCAINE 4% PATCH 1 PATCH TOPICAL (08:35)
[2025-04-16 10:11] LABS: Glucose - Point of Care 134 mg/dl (70-99)
[2025-04-16] MEDS: COZAAR 25 MG PO (11:10)
[2025-04-16] MEDS: NSS IV (11:13)
--- NOTE | 2025-04-16 11:19 | PTCARENOTE ---
pt VS completed, OOB in chair. at bedside. PRN pain meds given as ordered. TRANSCRIPT EVALUATOR aware of BP, ordered Losartan given. IS encouraged.
[2025-04-16 11:48] LABS: Glucose - Point of Care 86 mg/dl (70-99)
--- NOTE | 2025-04-16 12:17 | CM ---
Chart reviewed. Patient OOB sitting in the chair, at bedside. Patient is independent of ADLS, lives with his in a 2 STH, 2 ELY, 0 DME. Plan is for the patient to return home with CT Transitional RN. CM to follow
[2025-04-16 13:01] LABS: Glucose - Point of Care 161 mg/dl (70-99)
--- NOTE | 2025-04-16 15:35 | W.PN.CD ---
Today's Communication / Plan
-
pain control, IS
reinitiate GDMT (ARB, BB) as tolerated by blood pressure
Impression / Plan
-
I/P: 50M with HTN, HLD, & bicuspid aortic valve with severe aortic valve stenosis s/p SAVR.
Primary refrigeration manager: Dr. Lim
Severe AI s/p #25 On-X SAVR 04/15/[address] Valencia
- Post ZAKI LVEF 45% (unchanged from baseline) without RWMA, dilated ventricle, normal RV with MG 10 mmHg and small PFO
- EKG: Sinus bradycardia with first-degree AV block and LBBB, LBBB new, now resolved on POD1
- Follow telemetry, no events
- Initiation of warfarin per surgery
- Education on antibiotic prophylaxis
Essential hypertension, currently normotensive, reinitiate with GDMT for HFrEF as tolerated
Hypercholesterolemia, no CAD on cardiac catheterization
SUBJECTIVE:
Extubated, off vasoactives. Chest tubes remain in place. Lots of incisional pain.
Physical Exam
Vital Signs/Labs
Vital Signs
Temp Pulse Resp BP Pulse Ox
36.5 C 71 18 121/72 94
04/16/25 08:00 04/16/25 14:15 04/16/25 12:00 04/16/25 14:00 04/16/25 14:15
04/15/25 04/16/25 04/17/25
06:59 06:59 06:59
Actual Weight 84.8 kg 85.5 kg
04/16/25 02:10
04/16/25 02:10
PT 14.6 Sec (11.4-14.6) 04/16/25 02:10
INR 1.13 04/16/25 02:10
APTT 28.8 Sec (23.4-35.0) 04/15/25 12:39
Magnesium 2.5 mg/dl (1.6-2.3) H 04/16/25 02:10
Physical Exam
Constitutional: Comfortable
Cardiovascular: Rhythm & rate is regular
Respiratory: Respiratory effort normal
Neuro/Psych: AO x 3
Data Reviewed
-
Date of Service: April 16, 2025
Medical Decision Making: Reviewed Test Results
EKG: Tracing Personally Visualized and interpreted
Medical Tests (PFT, Pathology etc): Image Personally Visualized and interpreted
Labs: Labs Reviewed by me
[2025-04-16] MEDS: LOPRESSOR 12.5 MG PO (15:46)
[2025-04-16] MEDS: TORADOL 15 MG IV (15:47)
[2025-04-16] MEDS: LASIX 20 MG IV (15:47)
--- NOTE | 2025-04-16 16:00 | PTCARENOTE ---
pt VSS, resting between care. voids in urinal. OOB to chair for dinner. PRN pain meds given as ordered.
[2025-04-16] MEDS: COUMADIN 2.5 MG PO (18:20)
[2025-04-16] MEDS: REMOVE LIDOCAINE PATCH 1 PATCH REMOVE (20:02)
--- NOTE | 2025-04-16 20:45 | PTCARENOTE ---
Assumed care of pt from dayshift RN. Walking rounds completed. Pt AAOx4. Appropriate. SR on the tele monitor. HR 80s. +Click. BP stable. Palpable pulses throughout. No edema. Pt on RA. POX 94%. Mediastinal CTx2 to -20 suction, no airleaks noted at
this time, and output as documented. Lung sounds diminished throughout. Deep breathing and IS encouraged. Abdomen round. +BSx4. Voiding w/o issue. No nausea. Right IJ cordis and PIVx1 intact. All surgical sites stable. Pt assisted from the chair to
the bed w/ assistx1. See MAR for pain medication administration. See worklist for full nursing assessment and interventions. Call ahmadi within reach.
[2025-04-17] VITALS (9 sets, daily range): BP systolic 106–149; BP diastolic 66–87; PULSE 70; O2SAT 95; BMI 28.9
--- NOTE | 2025-04-17 00:12 | PTCARENOTE ---
No acute changes in assessment. Pt remains SR w/ 1st degree AVB on the tele monitor. HR 80s. BP stable. 93% on RA. Mediastinal CTx2 assessment unchanged. All surgical sites stable. Pt repositioned in bed as needed. Call ahmadi within reach.
[2025-04-17] MEDS: TORADOL 15 MG IV ×2 (01:01→20:18)
--- NOTE | 2025-04-17 03:28 | PTCARENOTE ---
No acute changes in assessment. Pt remains SR w/ 1st degree AVB on the tele monitor. HR 70s. BP stable. 93% on RA. Mediastinal CTx2 assessment unchanged. All surgical sites stable. Pt repositioned in bed as needed. Labs drawn and sent. Call ahmadi
within reach.
[2025-04-17 03:50] LABS: Hematocrit 31.7 % (39.0-52.0); Hemoglobin 11.3 g/dL (13.0-18.0); INR 1.21; Mean Corp Hgb Conc. 35.6 g/dL (33.0-37.0); Mean Corpuscular Volume 84.8 fL (80.0-94.0); PT 15.4 Sec (11.4-14.6); Platelet Count 109 10^3/uL (130-400); Red Cell Dist. Width 12.9 % (11.5-14.5)
[2025-04-17 04:04] LABS: Blood Urea Nitrogen 28 mg/dl (9-20); Calcium 8.3 mg/dl (8.4-10.2); Carbon Dioxide 30 mmol/L (22-30); Chloride 103 mmol/L (98-107); Estimated Creatinine Clearance 87 ml/min; Glucose 147 mg/dl (70-99); Magnesium 2.3 mg/dl (1.6-2.3); Potassium 4.5 mmol/L (3.5-5.1); Sodium 133 mmol/L (135-145); eGFR > 60.00
--- NOTE | 2025-04-17 04:52 | W.PN.CT ---
Today's Communication / Plan
-
-pod#2
-no issues overnight
-no drips
-med CT output 80/335 in 12/24 hrs
-diuresed with 20 iv Lasix on 04/15. UO 650/1400 in 12/24 hrs
-Coumadin started 04/16 for mechanical AVR- got 2.5 mg. INR today 1.21
-weaned off O2- pOx 94% on RA
-encourage IS, OOB
-current meds (ASA, Coumadin, Toprol 25 qd, Amio, Losartan 25 qd, Gabapentin, Protonix)
Assessment / Plan
-
Assessment:
-S/P Median sternotomy/AVR (#25 On-X)/ELAA (35mm AtriClip), by Dr. Valencia, 04/15/25, pod#2
-Bicuspid aortic valve/Severe AI
-LVEF 42% per intraop ZAKI
-HTN
-HLD
-Former tobacco use
-S/p cardiac cath, 04/08/25
-Acute postop blood loss/Anemia (stable with blood transfusion)
-Acute postop thrombocytopenia (stable, no active bleed)
-Acute postop atelectasis
-Acute postop hypovolemia with subsequent hypervolemia
Discussed patient care with: Nursing and Care Team
Subjective
Procedure
S/P Median sternotomy/AVR (#25 On-X)/ELAA (35mm AtriClip), by Dr. Valencia, 04/15/25
-
Date of Service: April 16, 2025
Objective Data
-
Lab Results
04/16/25 02:10
04/16/25 02:10
PT 14.6 Sec (11.4-14.6) 04/16/25 02:10
INR 1.13 04/16/25 02:10
APTT 28.8 Sec (23.4-35.0) 04/15/25 12:39
Vital Signs
Vital Signs
Temp Pulse Resp BP Pulse Ox
98.2 F 89 16 109/65 94
04/16/25 19:58 04/16/25 19:58 04/16/25 19:58 04/16/25 19:58 04/16/25 19:58
CT Intake/Output/Weight
04/16/25 04/16/25 04/17/25
06:59 18:59 06:59
Intake Total 375.8 / 375.8 120.7 / 130.7 10 / 130.7
Output Total 1120 / 1675 1005 / 1385 380 / 1385
Balance -744.2 / -1299.2 -884.3 / -1254.3 -370 / -1254.3
SaO2: 94
Physical Exam
-
General: Awake and AOx3
Cardiovascular: Regular rate & rhythm, No Murmurs and No Rub
Respiratory: Decreased Breath Sounds
Sternum: Stable
Incision: Clean, Dry and Intact
Extremities: No Edema
Abdomen: soft, nondistended, +decreased bowel sounds
Data Reviewed
-
Lab Results: Results Reviewed
Medications: Active Meds Reviewed
Chest X-Ray: Report Reviewed and Image Reviewed
ECG: Report Reviewed and Image Reviewed
[2025-04-17] MEDS: TYLENOL 975 MG PO ×2 (06:01→21:48)
[2025-04-17 06:31] LABS: B.E. - POC -2.1 mmol/L; Glucose - POC 95 mg/dl (70-99); HCO3 - POC 24 mmol/L (21-28); Hematocrit - POC 34 % PCV (42-52); Hemodilution- POC Yes; Hemoglobin Calculated - POC 11.6; Ionized Calcium - POC 1.28 mmol/L (1.15-1.33); Lactate - POC 3.00 mmol/L (0.36-0.75); O2 Saturation %Calculated-POC 100.0 % (94-98); PCO2 - POC 46 mmHg (35-48); PO2 - POC 486 mmHg (83-108); POC Comment POST; Potassium - POC 3.6 mmol/L (3.5-5.1); Sodium - POC 144 mmol/L (136-145); Specimen Type - POC Arterial; pH - POC 7.33 (7.35-7.45)
[2025-04-17] MEDS: ROXICODONE 5 MG PO ×3 (07:58→18:01)
[2025-04-17] MEDS: FLEXERIL 5 MG PO ×2 (07:59→20:17)
--- NOTE | 2025-04-17 08:30 | PTCARENOTE ---
Assumed care of patient at 0700. Pt is awake, alert, and oriented. Pt with complaints of pain, PRN Roxicodone administered at relief. Pt remains SR with HR 76 BP 113/75 MAP 88. Epicardial V wire insulated. Pulse oximetry 97% on room air. Mediastinal
chest tubes x2 in place, no sign of air leak or crepitus. Pt tolerating PO diet. Voiding without issue. Midsternal incision with post-surgical dressing in place. Right IJ cordis intact. Pt OOB in chair.
--- NOTE | 2025-04-17 08:48 | W.PN.CD ---
Today's Communication / Plan
-
Pain/chest tube management per CT surgery.
Warfarin, goal INR 2-3.
Furosemide 40 mg IV x1 and monitor response.
Start dapagliflozin 10 mg daily. Case management consult.
Incentive spirometry.
Ambulation.
Impression / Plan
-
Impression/Plan: 50M with HTN, HLD, & bicuspid aortic valve with severe aortic valve insufficiency s/p SAVR.
Primary manager technical services: Dr. Lim
#Severe AI
-Chronic, progressive.
-s/p #25 On-X SAVR with Dr. Valencia (04/15/2025).
-Post ZAKI LVEF 45% (unchanged from baseline) without RWMA, dilated ventricle, normal RV with MG 10 mmHg and small PFO.
-EKG: Sinus bradycardia with first-degree AV block and LBBB, LBBB new, now resolved on POD1.
-Routine post operative management.
-Continue post operative amiodarone for post op AF prophylaxis. S/P #35 AtriClip.
-Incentive spirometry.
-Ambulation.
-Pain/chest tube management per CT surgery.
-Warfarin at CT surgery discretion (goal INR 2-3 for 3 months, after which time the INR goal can be lowered to 1.5-2.0).
#Non-ischemic cardiomyopathy
-Chronic progressive.
-LVEF 42% by ZAKI.
-GDMT as hemodynamics will tolerate:
-Diuretics: Intermittent furosemide. Furosemide to 40 mg IV x1 today and monitor response.
-Beta marina: Metoprolol succinate 25 mg daily.
-ACEI/ARB/ARNi: Losartan 25 mg daily.
-MRA: LVEF > 40%. Consider spironolactone in the future.
-SGLT2i: Start dapagliflozin 10 mg daily. Case management consult.
-ICD: Not currently indicated.
#Essential hypertension
-Chronic, currently normotensive.
-Monitor response as we reinitiate GDMT for HFrEF.
#Hypercholesterolemia
-Chronic, stable.
-No CAD on cardiac catheterization.
Subjective/Interval History:
Weight up 0.8 kg form yesterday in spite of diuresis.
BP generally stable.
Warfarin 2.5 mg given yesterday.
Na down to 133.
DATA:
Cardiac Catheterization, 04/08/2025:
CONCLUSIONS
1. Right dominant circulation with an anterior origin of the right coronary artery and a large posterolateral arcade that functions as the circumflex distribution. There is no coronary artery disease.
2. Moderately elevated filling pressures (LVEDP = 19 mmHg at 89.8 kg) with evidence of diastolic dysfunction (A wave to 35 mmHg).
SAVR, 04/15/2025:
PROCEDURES:
1. Median sternotomy
2. ELAA (35mm AtriClip)
3. AVR (#25 On-X)
Intraoperative ZAKI, 04/15/2025:
CONCLUSIONS
Dilated left ventricle with concomitant concentric hypertrophy. Mildly
diminished ejection fraction with LVEF of 42% by Cobb's. No wall motion
abnormalities are seen.
Normal right ventricular systolic function.
Bicuspid aortic valve with prolapsing anterior leaflet resulting is severe
regurgitation.
Trace to mild mitral regurgitation.
Grossly normal tricuspid valve.
Mildly ectatic ascending aorta with a max diameter of 4.2 cm.
Normal left atrial appendage.
Small [id number] patent foramen ovale.
POST OPERATIVE FINDINGS
S/P AVR with size 25 mechanical valve; LAAE clip.
The mechanical valve is well-seated with no paravalvular leak. Washing jets are
present. The mean gradient is 10 mmHg with a cardiac index of 3 L/min/meters
sq. The left atrial appendage is no longer visible with color flow Doppler
confirming the absence of flow. Otherwise unchanged exam. The rhythm is sinus.
Physical Exam
Vital Signs/Labs
Vital Signs
Temp Pulse Resp BP Pulse Ox
36.6 C 77 16 106/66 93
04/17/25 03:18 04/17/25 05:45 04/17/25 03:18 04/17/25 03:18 04/17/25 03:18
04/15/25 04/16/25 04/17/25
11:59 11:59 11:59
Actual Weight 84.8 kg 85.5 kg 86.3 kg
04/17/25 03:23
04/17/25 03:23
PT 15.4 Sec (11.4-14.6) H 04/17/25 03:23
INR 1.21 04/17/25 03:23
APTT 28.8 Sec (23.4-35.0) 04/15/25 12:39
Magnesium 2.3 mg/dl (1.6-2.3) 04/17/25 03:23
Physical Exam
Constitutional: No acute distress and Comfortable
EENT: Moist mucous membranes
Cardiovascular: Rhythm & rate is regular, Pedal edema is absent, JVD pressure is normal and Other (S2 is crisp and mechanical.)
Respiratory: Respiratory effort normal and Other (Decreased throughout.)
GI: Soft, Distention absent, Flat, Non tender and Normal bowel sounds
Neuro/Psych: AO x 3
Data Reviewed
-
Date of Service: April 17, 2025
Medical Decision Making: Reviewed Test Results, Independent Historian Assessment and Test Interpretation
EKG: Tracing Personally Visualized and interpreted and Report Reviewed by me
Echo: Tracing Personally Visualized and interpreted and Report Reviewed by me
X-Ray/CT/US/MRI/NUC/PET: Image Personally Visualized and interpreted and Report Reviewed by me
Medical Tests (PFT, Pathology etc): Image Personally Visualized and interpreted and Report Reviewed by me
Labs: Labs Reviewed by me
Old Records: Reviewed
[2025-04-17] MEDS: PACERONE 200 MG PO ×2 (09:10→20:17)
[2025-04-17] MEDS: LOW STRENGTH ASPIRIN 81 MG PO (09:10)
[2025-04-17] MEDS: TOPROL XL 25 MG PO (09:10)
[2025-04-17] MEDS: NEURONTIN 100 MG PO ×3 (09:10→21:48)
[2025-04-17] MEDS: PROTONIX 40 MG PO (09:11)
[2025-04-17] MEDS: SENOKOT 8.6 MG PO ×2 (09:11→20:17)
[2025-04-17] MEDS: BACTROBAN 2% OINTMENT 1 APPLIC NASAL ×2 (09:11→20:18)
[2025-04-17] MEDS: LIDOCAINE 4% PATCH 1 PATCH TOPICAL (09:11)
[2025-04-17] MEDS: LASIX 40 MG IV ×2 (09:17→16:15)
--- NOTE | 2025-04-17 10:06 | CM ---
Chart reviewed. Patient OOB sitting in the chair. Patient is independent of ADLS, lives in a [address], 2 [facility], 0 DME. Plan is for the patient to return home with CT Transitional RN. CM to follow
--- NOTE | 2025-04-17 12:35 | PTCARENOTE ---
Chest tubes x2 d/c'd per order. Pt remains SR with HR 70's. BP 123/85 MAP 95. Pulse oximetry 95% on room air.
[2025-04-17] MEDS: NSS 500 IV (12:36)
--- NOTE | 2025-04-17 15:45 | PTCARENOTE ---
Pt ambulating in hallway without issue. Pt remains SR with HR 80's. BP 119/77 MAP 89. Pulse oximetry 95% on room air.
[2025-04-17] MEDS: TYLENOL PO (16:07)
[2025-04-17] MEDS: KCL 20 MEQ PO (16:15)
[2025-04-17] MEDS: COUMADIN 2.5 MG PO (17:57)
[2025-04-17] MEDS: COZAAR 25 MG PO (17:57)
[2025-04-17] MEDS: REMOVE LIDOCAINE PATCH 1 PATCH REMOVE (20:18)
--- NOTE | 2025-04-17 20:30 | PTCARENOTE ---
Assumed care of patient at 1900 from prior RN. Patient alert and oriented, follow commands, gait strong, sternal precautions, incisional site CDI. Chest tube dressing CDI. Ambulated in room, CLARK, Pain control with IV tordal. Lungs clear and
diminished bilaterally Bowels sounds present, VSS See assement for more deatail data. Call light withi reach.
[2025-04-17] MEDS: MUCINEX 600 MG PO (21:48)
--- NOTE | 2025-04-17 22:34 | PTCARENOTE ---
reassessed patient. no changes noted. resting comfortable, denies pain, pm medications given, CHG bath completed. VSS call light within reach.
[2025-04-18] VITALS (9 sets, daily range): BP systolic 111–140; BP diastolic 71–93; PULSE 75; O2SAT 95–99; BMI 28.3
[2025-04-18 03:47] LABS: Hematocrit 32.6 % (39.0-52.0); Hemoglobin 11.6 g/dL (13.0-18.0); Mean Corp Hgb Conc. 35.6 g/dL (33.0-37.0); Mean Corpuscular Volume 84.5 fL (80.0-94.0); Platelet Count 113 10^3/uL (130-400); Red Cell Dist. Width 12.7 % (11.5-14.5)
[2025-04-18 03:51] LABS: INR 1.14; PT 14.4 Sec (11.4-14.6)
--- NOTE | 2025-04-18 03:52 | PTCARENOTE ---
patient resting VVS, voids clear yellow in urinal, no changes since last assessment,.
[2025-04-18 04:08] LABS: Blood Urea Nitrogen 27 mg/dl (9-20); Calcium 8.1 mg/dl (8.4-10.2); Carbon Dioxide 33 mmol/L (22-30); Chloride 101 mmol/L (98-107); Estimated Creatinine Clearance 97 ml/min; Glucose 107 mg/dl (70-99); Magnesium 2.5 mg/dl (1.6-2.3); Potassium 3.8 mmol/L (3.5-5.1); Sodium 133 mmol/L (135-145); eGFR > 60.00
--- NOTE | 2025-04-18 04:52 | W.PN.CT ---
Today's Communication / Plan
-
-pod #3
-no issues overnight
-no drips
-diuresed with 40 iv bid Lasix on 04/16. UO 1100/3650 in 05/08 hrs- continue
-gave 40 po KCL for K 3.8
-Coumadin started 04/16 for mechanical AVR- got 2.5 and 2.5 mg. INR today 1.14
-weaned off O2- pOx 98% on RA
-current meds (ASA, Coumadin, Toprol 25 qd, Amio, Losartan 25 qd, Mucinex, Gabapentin, Protonix)
-encourage IS, OOB, ambulate
Assessment / Plan
-
Assessment:
-S/P Median sternotomy/AVR (#25 On-X)/ELAA (35mm AtriClip), by Dr. Valencia, 04/15/25, pod#3
-Bicuspid aortic valve/Severe AI
-LVEF 42% per intraop ZAKI
-HTN
-HLD
-Former tobacco use
-S/p cardiac cath, 04/08/25
-Acute postop blood loss/Anemia (stable with blood transfusion)
-Acute postop thrombocytopenia (stable, no active bleed)
-Acute postop atelectasis
-Acute postop hypovolemia with subsequent hypervolemia
Discussed patient care with: Nursing and Care Team
Subjective
Procedure
S/P Median sternotomy/AVR (#25 On-X)/ELAA (35mm AtriClip), by Dr. Valencia, 04/15/25
-
Date of Service: April 18, 2025
Objective Data
-
PT 15.4 Sec (11.4-14.6) H 04/17/25 03:23
INR 1.21 04/17/25 03:23
APTT 28.8 Sec (23.4-35.0) 04/15/25 12:39
Vital Signs
Vital Signs
Temp Pulse Resp BP Pulse Ox
98.3 F 88 20 149/87 98
04/17/25 20:24 04/17/25 22:00 04/17/25 20:24 04/17/25 20:17 04/17/25 20:32
CT Intake/Output/Weight
04/17/25 04/17/25 04/18/25
06:59 18:59 06:59
Intake Total 110 / 230.7 20 / 190 170 / 190
Output Total 1100 / 2105 2575 / 3275 700 / 3275
Balance -990 / -1874.3 -2555 / -3085 -530 / -3085
SaO2: 98
Physical Exam
-
General: Awake and AOx3
Cardiovascular: Regular rate & rhythm, No Murmurs and No Rub
Respiratory: Decreased Breath Sounds
Sternum: Stable
Incision: Clean, Dry and Intact
Extremities: No Edema
Abdomen: soft, nontender, nondistended, + bowel sounds
Data Reviewed
-
Lab Results: Results Reviewed
Medications: Active Meds Reviewed
Chest X-Ray: Report Reviewed and Image Reviewed
ECG: Report Reviewed and Image Reviewed
[2025-04-18] MEDS: TYLENOL 975 MG PO ×3 (05:30→21:07)
[2025-04-18] MEDS: KCL 40 MEQ PO (05:30)
[2025-04-18] MEDS: ROXICODONE 5 MG PO (05:30)
--- NOTE | 2025-04-18 07:55 | W.PN.CD ---
Today's Communication / Plan
-
Warfarin, goal INR 2-3.
Can hold diuresis today
Remove cordis
Incentive spirometry.
Ambulation.
Impression / Plan
-
Impression/Plan: 50M with HTN, HLD, & bicuspid aortic valve with severe aortic valve insufficiency s/p SAVR.
Primary resident physician in radiology: Dr. Lim
#Severe AI
-Chronic, progressive.
-s/p #25 On-X SAVR with Dr. Valencia (04/15/2025).
-Post ZAKI LVEF 45% (unchanged from baseline) without RWMA, dilated ventricle, normal RV with MG 10 mmHg and small PFO.
-EKG: Sinus bradycardia with first-degree AV block and LBBB, LBBB new, now resolved on POD1.
-Routine post operative management.
-Continue post operative amiodarone for post op AF prophylaxis. S/P #35 AtriClip.
-Incentive spirometry.
-Ambulation.
-Remove cordis today.
-Pain/chest tube management per CT surgery.
-Warfarin at CT surgery discretion (goal INR 2-3 for 3 months, after which time the INR goal can be lowered to 1.5-2.0).
#Non-ischemic cardiomyopathy
-Chronic progressive.
-LVEF 42% by ZAKI.
-GDMT as hemodynamics will tolerate:
-Diuretics: Intermittent furosemide. Furosemide to 40 mg IV x1 yesterday with 3L UOP, now at admission weight; euvolemic on exam. No need for further diuresis today.
-Beta marina: Metoprolol succinate 25 mg daily.
-ACEI/ARB/ARNi: Losartan 25 mg daily.
-MRA: LVEF > 40%. Consider spironolactone in the future.
-SGLT2i: Start dapagliflozin 10 mg daily. Case management consult.
-ICD: Not currently indicated.
#Essential hypertension
-Chronic, currently normotensive.
-Monitor response as we reinitiate GDMT for HFrEF.
#Hypercholesterolemia
-Chronic, stable.
-No CAD on cardiac catheterization.
Subjective/Interval History:
Weight down 2 kg form yesterday with significant UOP. Now at admission weight
BP generally stable.
Pleuritic chest pain much improved.
DATA:
Cardiac Catheterization, 04/08/2025:
CONCLUSIONS
1. Right dominant circulation with an anterior origin of the right coronary artery and a large posterolateral arcade that functions as the circumflex distribution. There is no coronary artery disease.
2. Moderately elevated filling pressures (LVEDP = 19 mmHg at 89.8 kg) with evidence of diastolic dysfunction (A wave to 35 mmHg).
SAVR, 04/15/2025:
PROCEDURES:
1. Median sternotomy
2. ELAA (35mm AtriClip)
3. AVR (#25 On-X)
Intraoperative ZAKI, 04/15/2025:
CONCLUSIONS
Dilated left ventricle with concomitant concentric hypertrophy. Mildly
diminished ejection fraction with LVEF of 42% by Cobb's. No wall motion
abnormalities are seen.
Normal right ventricular systolic function.
Bicuspid aortic valve with prolapsing anterior leaflet resulting is severe
regurgitation.
Trace to mild mitral regurgitation.
Grossly normal tricuspid valve.
Mildly ectatic ascending aorta with a max diameter of 4.2 cm.
Normal left atrial appendage.
Small [id number] patent foramen ovale.
POST OPERATIVE FINDINGS
S/P AVR with size 25 mechanical valve; LAAE clip.
The mechanical valve is well-seated with no paravalvular leak. Washing jets are
present. The mean gradient is 10 mmHg with a cardiac index of 3 L/min/meters
sq. The left atrial appendage is no longer visible with color flow Doppler
confirming the absence of flow. Otherwise unchanged exam. The rhythm is sinus.
Physical Exam
Vital Signs/Labs
Vital Signs
Temp Pulse Resp BP Pulse Ox
36.8 C 88 20 149/87 98
04/17/25 20:24 04/17/25 22:00 04/17/25 20:24 04/17/25 20:17 04/18/25 00:07
04/17/25 04/18/25 04/19/25
06:59 06:59 06:59
Actual Weight 86.3 kg 84.4 kg
04/18/25 03:30
04/18/25 03:30
PT 14.4 Sec (11.4-14.6) 04/18/25 03:30
INR 1.14 04/18/25 03:30
APTT 28.8 Sec (23.4-35.0) 04/15/25 12:39
Magnesium 2.5 mg/dl (1.6-2.3) H 04/18/25 03:30
Physical Exam
Constitutional: Comfortable
Cardiovascular: Rhythm & rate is regular
Respiratory: Respiratory effort normal
Neuro/Psych: AO x 3
Data Reviewed
-
Date of Service: April 18, 2025
Medical Decision Making: Reviewed Test Results
Labs: Labs Reviewed by me
--- NOTE | 2025-04-18 08:00 | PTCARENOTE ---
Assumed care of patient from ornamental metal worker helper RN. AAO x 3 sitting up in chair. Denies complaint. SR with first degree AVB. Epicardial wire insulated. Abdomen soft and nontender, denies nausea, passing flatus, appetite good.. Voiding w/o issue.
Surgical sites c,d,i. Pulses palpable. Plan for day discussed.
[2025-04-18] MEDS: FARXIGA 10 MG PO (08:32)
[2025-04-18] MEDS: PROTONIX 40 MG PO (08:32)
[2025-04-18] MEDS: LOW STRENGTH ASPIRIN 81 MG PO (08:32)
[2025-04-18] MEDS: TOPROL XL 25 MG PO ×2 (08:32→09:07)
[2025-04-18] MEDS: PACERONE 200 MG PO ×2 (08:33→20:17)
[2025-04-18] MEDS: NEURONTIN 100 MG PO ×2 (08:33→21:07)
[2025-04-18] MEDS: SENOKOT 8.6 MG PO ×2 (08:33→20:17)
[2025-04-18] MEDS: LIDOCAINE 4% PATCH TOPICAL (08:33)
[2025-04-18] MEDS: MUCINEX 600 MG PO ×2 (08:33→20:17)
[2025-04-18] MEDS: BACTROBAN 2% OINTMENT 1 APPLIC NASAL ×2 (08:33→20:20)
[2025-04-18] MEDS: CALCIUM GLUCONATE 100 IV (09:55)
--- NOTE | 2025-04-18 11:39 | CM ---
Pricing on Farxiga through the patient's [employer], ID# [id number], is $122.60. Patient will need a prior authorization called into [phone]. I gave patient a $0 copay card in his red discharge folder. I also let the patient know
Farxiga will be going generic in August and the copay card will no longer qualify. I notified Liliana Morales of [place].
Jardiance is also $122 and will need a PA.
Patient is agreeable to cost and information
[2025-04-18] MEDS: NSS IV (12:57)
--- NOTE | 2025-04-18 13:58 | PTCARENOTE ---
RT IJ cordis removed, Manual pressure applied and hemostasis achieved. Flat affect, pain well tolerated. VSS. Assessment otherwise unchanged from prior
[2025-04-18] MEDS: NEURONTIN PO (16:08)
[2025-04-18] MEDS: COZAAR 25 MG PO (17:06)
[2025-04-18] MEDS: COUMADIN 5 MG PO (17:06)
--- NOTE | 2025-04-18 17:47 | PTCARENOTE ---
Ambulating freely in hallway. pain well managed. Coumadin administered. VSS. Assessment otherwise unchanged from prior.
[2025-04-18] MEDS: REMOVE LIDOCAINE PATCH REMOVE (19:53)
[2025-04-18] MEDS: TORADOL 15 MG IV (20:16)
--- NOTE | 2025-04-18 20:49 | PTCARENOTE ---
Patient received from RN @ 1900. Patient lying in bed w/ call ahmadi in reach. SR w/ first degree in monitor. BP 132/85 HR 76. Heart sounds audible. Radial and pedal pulses present. No edema noted. V-wires insulated. POX 96% RA. IS 1500.
Bowel sounds normoactive. Voiding clear yellow urine. Sternal Aquacel C/D/I. PIV patent and intact. Patient ambulates independently. See worklist for more details.
[2025-04-19] VITALS (7 sets, daily range): BP systolic 115–133; BP diastolic 72–85; BMI 28.0
--- NOTE | 2025-04-19 00:11 | PTCARENOTE ---
Patient reassessed. SR w/ first degree on monitor. BP 126/84 HR 85 POX 96% RA. Patient states pain is well controlled but having difficulty falling asleep. CT PA aware melatonin ordered.
[2025-04-19] MEDS: MELATONIN 5 MG PO (00:14)
[2025-04-19] MEDS: ZOFRAN 4 MG IV (03:24)
--- NOTE | 2025-04-19 03:53 | PTCARENOTE ---
Patient reassessed. Patient complains of nausea, zofran given. SR w/ first degree and LBBB. BP 125/81 HR 74 POX 95% RA. EKG and labs obtained.
[2025-04-19 03:55] LABS: Hematocrit 39.7 % (39.0-52.0); Hemoglobin 14.1 g/dL (13.0-18.0); Mean Corp Hgb Conc. 35.5 g/dL (33.0-37.0); Mean Corpuscular Volume 83.9 fL (80.0-94.0); Platelet Count 160 10^3/uL (130-400); Red Cell Dist. Width 12.5 % (11.5-14.5)
[2025-04-19 04:03] LABS: INR 1.10; PT 14.1 Sec (11.4-14.6)
[2025-04-19 04:23] LABS: Blood Urea Nitrogen 23 mg/dl (9-20); Calcium 9.1 mg/dl (8.4-10.2); Carbon Dioxide 26 mmol/L (22-30); Chloride 106 mmol/L (98-107); Estimated Creatinine Clearance 97 ml/min; Glucose 105 mg/dl (70-99); Magnesium 2.4 mg/dl (1.6-2.3); Potassium 4.3 mmol/L (3.5-5.1); Sodium 135 mmol/L (135-145); eGFR > 60.00
--- NOTE | 2025-04-19 04:23 | W.PN.CT ---
Today's Communication / Plan
-
-pod #4
-no significant issues overnight, had trouble sleeping- tx with Melatonin
-no drips
-Toprol was increased to 50 qd for htn/tachycardia
-has new 1st degree AVB and LBBB postop
-Coumadin started 04/16 for mechanical AVR- got 2.5, 2.5, 5 mg. INR today 1.10
-BMP pending
-weaned off O2- pOx 98% on RA
-current meds (ASA, Coumadin, Toprol 50 qd, Amio, Losartan 25 qd, Mucinex, Gabapentin, Protonix)
-encourage IS, OOB, ambulate
Assessment / Plan
-
Assessment:
-S/P Median sternotomy/AVR (#25 On-X)/ELAA (35mm AtriClip), by Dr. Valencia, 04/15/25, pod#4
-Bicuspid aortic valve/Severe AI
-LVEF 42% per intraop ZAKI
-HTN
-HLD
-Former tobacco use
-S/p cardiac cath, 04/08/25
-Acute postop blood loss/Anemia (stable with blood transfusion)
-Acute postop thrombocytopenia (stable, no active bleed)
-Acute postop atelectasis
-Acute postop hypovolemia with subsequent hypervolemia
-Acute postop 1st degree AV block and LBBB
Discussed patient care with: Nursing and Care Team
Subjective
Procedure
S/P Median sternotomy/AVR (#25 On-X)/ELAA (35mm AtriClip), by Dr. Valencia, 04/15/25
-
Date of Service: April 19, 2025
Objective Data
-
PT 14.4 Sec (11.4-14.6) 04/18/25 03:30
INR 1.14 04/18/25 03:30
APTT 28.8 Sec (23.4-35.0) 04/15/25 12:39
Vital Signs
Vital Signs
Temp Pulse Resp BP Pulse Ox
98.3 F 78 17 126/85 96
04/19/25 00:10 04/19/25 00:08 04/19/25 00:10 04/19/25 00:08 04/19/25 00:10
CT Intake/Output/Weight
04/18/25 04/18/25 04/19/25
06:59 18:59 06:59
Intake Total 450 / 470 1180 / 1180
Output Total 1400 / 3975
Balance -950 / -3505 1180 / 1180
SaO2: 96
Physical Exam
-
General: Awake and AOx3
Cardiovascular: Regular rate & rhythm, No Murmurs and No Rub
Respiratory: Decreased Breath Sounds
Sternum: Stable
Incision: Clean, Dry and Intact
Abdomen: soft, nontender, nondistended, + bowel sounds
Extremities: No Edema
Data Reviewed
-
Lab Results: Results Reviewed
Medications: Active Meds Reviewed
Chest X-Ray: Report Reviewed and Image Reviewed
ECG: Report Reviewed and Image Reviewed
[2025-04-19] MEDS: TYLENOL 975 MG PO ×3 (06:24→22:19)
[2025-04-19 07:02] LABS: APTT 33.7 Sec (23.4-35.0)
--- NOTE | 2025-04-19 07:17 | W.PN.CD ---
Today's Communication / Plan
-
Warfarin 10 mg PO tonight.
Goal INR 2-3 for 3 months, then goal can shift to 1-5-2.0.
Ambulation.
Incentive spirometry.
Impression / Plan
-
Impression/Plan: 50M with HTN, HLD, & bicuspid aortic valve with severe aortic valve insufficiency s/p SAVR.
Primary accredited legal secretary: Dr. Lim
#Severe AI
-Chronic, progressive.
-s/p #25 On-X SAVR with Dr. Valencia (04/15/2025).
-Post ZAKI LVEF 45% (unchanged from baseline) without RWMA, dilated ventricle, normal RV with MG 10 mmHg and small PFO.
-EKG: Sinus bradycardia with first-degree AV block and LBBB.
-Routine post operative management.
-Continue post operative amiodarone for post op AF prophylaxis. S/P #35 AtriClip.
-Incentive spirometry.
-Ambulation.
-Give warfarin 10 mg tonight then 5 mg daily starting tomorrow (goal INR 2-3 for 3 months, after which time the INR goal can be lowered to 1.5-2.0).
#Non-ischemic cardiomyopathy
-Chronic progressive.
-LVEF 42% by ZAKI.
-GDMT as hemodynamics will tolerate:
-Diuretics: Furosemide 40 mg PO PRN weight gain (1-3 lbs/24 hours, 3-5 lbs/week).
-Beta marina: Metoprolol succinate 25 mg daily.
-ACEI/ARB/ARNi: Losartan 25 mg daily.
-MRA: LVEF > 40%. Consider spironolactone in the future.
-SGLT2i: Start dapagliflozin 10 mg daily. Case management consult.
-ICD: Not currently indicated.
#Essential hypertension
-Chronic, currently normotensive.
-Monitor response as we reinitiate GDMT for HFrEF.
#Hypercholesterolemia
-Chronic, stable.
-No CAD on cardiac catheterization.
Subjective/Interval History:
Weight at or below preoperative weight.
DATA:
Cardiac Catheterization, 04/08/2025:
CONCLUSIONS
1. Right dominant circulation with an anterior origin of the right coronary artery and a large posterolateral arcade that functions as the circumflex distribution. There is no coronary artery disease.
2. Moderately elevated filling pressures (LVEDP = 19 mmHg at 89.8 kg) with evidence of diastolic dysfunction (A wave to 35 mmHg).
SAVR, 04/15/2025:
PROCEDURES:
1. Median sternotomy
2. ELAA (35mm AtriClip)
3. AVR (#25 On-X)
Intraoperative ZAKI, 04/15/2025:
CONCLUSIONS
Dilated left ventricle with concomitant concentric hypertrophy. Mildly
diminished ejection fraction with LVEF of 42% by Cobb's. No wall motion
abnormalities are seen.
Normal right ventricular systolic function.
Bicuspid aortic valve with prolapsing anterior leaflet resulting is severe
regurgitation.
Trace to mild mitral regurgitation.
Grossly normal tricuspid valve.
Mildly ectatic ascending aorta with a max diameter of 4.2 cm.
Normal left atrial appendage.
Small [id number] patent foramen ovale.
POST OPERATIVE FINDINGS
S/P AVR with size 25 mechanical valve; LAAE clip.
The mechanical valve is well-seated with no paravalvular leak. Washing jets are
present. The mean gradient is 10 mmHg with a cardiac index of 3 L/min/meters
sq. The left atrial appendage is no longer visible with color flow Doppler
confirming the absence of flow. Otherwise unchanged exam. The rhythm is sinus.
Physical Exam
Vital Signs/Labs
Vital Signs
Temp Pulse Resp BP Pulse Ox
36.8 C 69 17 125/81 95
04/19/25 03:50 04/19/25 03:50 04/19/25 03:50 04/19/25 03:50 04/19/25 03:50
04/17/25 04/18/25 04/19/25
11:59 11:59 11:59
Actual Weight 86.3 kg 84.4 kg 83.6 kg
04/19/25 03:35
PT 14.1 Sec (11.4-14.6) 04/19/25 03:35
INR 1.10 04/19/25 03:35
APTT 33.7 Sec (23.4-35.0) 04/19/25 06:43
Magnesium 2.4 mg/dl (1.6-2.3) H 04/19/25 03:35
Physical Exam
Constitutional: No acute distress and Comfortable
EENT: Anicteric and Moist mucous membranes
Cardiovascular: Rhythm & rate is regular, Pedal edema is absent, JVD pressure is normal, S1S2 is normal (S2 is crisp and mechanical.) and Murmur/rub/gallop absent
Respiratory: Respiratory effort normal, Lungs clear to auscul., Wheeze Absent, Crackles Absent and Rhonchi Absent
GI: Soft, Distention absent, Flat, Non tender and Normal bowel sounds
Neuro/Psych: AO x 3
Data Reviewed
-
Date of Service: April 19, 2025
Medical Decision Making: Reviewed Test Results, Independent Historian Assessment and Test Interpretation
EKG: Tracing Personally Visualized and interpreted and Report Reviewed by me
Echo: Report Reviewed by me
X-Ray/CT/US/MRI/NUC/PET: Image Personally Visualized and interpreted and Report Reviewed by me
Medical Tests (PFT, Pathology etc): Image Personally Visualized and interpreted and Report Reviewed by me
Labs: Labs Reviewed by me
Old Records: Reviewed
[2025-04-19] MEDS: PROTONIX 40 MG PO (09:05)
[2025-04-19] MEDS: LOW STRENGTH ASPIRIN 81 MG PO (09:05)
[2025-04-19] MEDS: TOPROL XL 50 MG PO (09:05)
[2025-04-19] MEDS: NEURONTIN 100 MG PO ×3 (09:05→22:18)
[2025-04-19] MEDS: SENOKOT 8.6 MG PO (09:05)
[2025-04-19] MEDS: LIDOCAINE 4% PATCH 1 PATCH TOPICAL (09:05)
[2025-04-19] MEDS: FARXIGA 10 MG PO (09:05)
[2025-04-19] MEDS: MUCINEX 600 MG PO ×2 (09:05→19:31)
[2025-04-19] MEDS: PACERONE 200 MG PO ×2 (09:05→19:31)
[2025-04-19] MEDS: BACTROBAN 2% OINTMENT 1 APPLIC NASAL (09:06)
[2025-04-19] MEDS: NSS IV (09:06)
[2025-04-19 09:33] LABS: Hematocrit 35.8 % (39.0-52.0); Hemoglobin 13.1 g/dL (13.0-18.0); Mean Corp Hgb Conc. 36.6 g/dL (33.0-37.0); Mean Corpuscular Volume 84.4 fL (80.0-94.0); Platelet Count 187 10^3/uL (130-400); Red Cell Dist. Width 12.6 % (11.5-14.5)
[2025-04-19] MEDS: HEPARIN 25000 UNITS/250 ML IV (09:54)
--- NOTE | 2025-04-19 10:09 | PTCARENOTE ---
assumed care of pt from previous shift RN, sinus rhythm on tele w 1st degree HB and LBBB, epicardial V wire insulated, + peripheral pulses, no edema noted. Lungs clear, pox 95% on RA. +BS, tolerating PO intake, voids spontaneously. PIV flushes
easily, 2nd IV site placed to initiate heparin infusion. Labs sent as ordered. Pt showered. Aquacell dressing maintained to sternum. Plan of care reviewed w the pt and questions encouraged.
--- NOTE | 2025-04-19 12:22 | PTCARENOTE ---
VSS, heparin gtt maintained, sent for 2 view CXR.
--- NOTE | 2025-04-19 13:42 | CM ---
Chart reviewed. Patient OOB sitting in the chair, at bedside. Patient's INR only 1.10 this AM, waiting for his INR to be between 2-3. Patient is independent of ADLS, lives with his in a 2 [facility], 2 ELY, 0 DME. Plan is for the patient to
return home with CT Transitional RN. CM to follow
--- NOTE | 2025-04-19 16:37 | PTCARENOTE ---
VSS, repeat labs drawn and sent.
[2025-04-19 16:46] LABS: APTT 53.5 Sec (23.4-35.0)
[2025-04-19] MEDS: COZAAR 25 MG PO (17:21)
[2025-04-19] MEDS: COUMADIN 10 MG PO (17:21)
[2025-04-19] MEDS: SENOKOT PO (19:31)
[2025-04-19] MEDS: REMOVE LIDOCAINE PATCH REMOVE (19:31)
--- NOTE | 2025-04-19 21:55 | PTCARENOTE ---
Assumed care of patient at 1900. Patient found resting in bed at time of assessment. Patient is AOx4, follows commands appropriately, moves all extremities. Lung sounds are clear and equal bilaterally. Heart sounds are audible, patient is SR with
1st deg AV block and BBB. V wires present and insulated. Normal palpable pulses and no observable edema. Patient is voiding and reports +BM during the day. Patient has sternal incision with aquacell dressing that is CDI. Patient has 18G in L AC and
22g in L wrist receiving heparin at 1200 units/hr. VSS. Call ahmadi within reach.
[2025-04-19] MEDS: XANAX 0.25 MG PO (22:19)
[2025-04-19 22:52] LABS: APTT 51.3 Sec (23.4-35.0)
--- NOTE | 2025-04-19 23:00 | PTCARENOTE ---
report received from previous RN, walking rounds done. pt in bed, sleeping. SR w 1st degree AVB + LBBB on monitor, HR 80s. epicardial V wire insulated. + peripheral pulses. no edema noted. B/L breath sounds present. POX 96% on RA. IS encouraged.
+BS, tolerating PO intake. voids spontaneously. PIV x2 intact and patent. heparin gtt infusing per orders. all surgical sites stable. see worklist for full assessment, VS, and interventions.
[2025-04-20] VITALS (7 sets, daily range): BP systolic 118–140; BP diastolic 76–94; BMI 27.9
--- NOTE | 2025-04-20 04:22 | W.PN.CT ---
Today's Communication / Plan
-
Plan:
-No major issues overnight. Hemodynamically and neurologically intact
-On Heparin to Coumadin bridge
-Monitor INR after Coumadin daily dosing of 2.5/2.5/5/10 mg. INR 1.39 today, was 1.10 yesterday
-Tolerating increased Toprol XL 50 qd for htn
-Noted new 1st degree AVB and LBBB postop
-Cont. current meds (ASA, Coumadin, Toprol 50 qd, Amio, Losartan 25 qd, Mucinex, Gabapentin, Protonix)
-Encourage use of IS
-OOB into chair/Ambulate
-D/C home likely tomorrow, awaiting bump in INR
Assessment / Plan
-
Assessment:
-S/P Median sternotomy/AVR (#25 On-X)/ELAA (35mm AtriClip), by Dr. Valencia, 04/15/25, pod#5
-Bicuspid aortic valve/Severe AI
-LVEF 42% per intraop ZAKI
-HTN
-HLD
-Former tobacco use
-S/p cardiac cath, 04/08/25
-Acute postop blood loss/Anemia (stable with blood transfusion)
-Acute postop thrombocytopenia (stable, no active bleed)
-Acute postop atelectasis
-Acute postop hypovolemia with subsequent hypervolemia
-Acute postop 1st degree AV block and LBBB
Discussed patient care with: Cardiology, Nursing, Respiratory Therapy, Pharmacy and Care Team
Subjective
Procedure
S/P Median sternotomy/AVR (#25 On-X)/ELAA (35mm AtriClip), by Dr. Valencia, 04/15/25
-
Date of Service: April 20, 2025
Pt c/o insomnia last night, slept well with Xanax
Objective Data
-
PT 14.1 Sec (11.4-14.6) 04/19/25 03:35
INR 1.10 04/19/25 03:35
APTT 51.3 Sec (23.4-35.0) H 04/19/25 22:33
Vital Signs
Vital Signs
Temp Pulse Resp BP Pulse Ox
97.3 F 87 18 115/82 98
04/19/25 22:44 04/19/25 22:23 04/19/25 22:44 04/19/25 22:23 04/19/25 22:44
CT Intake/Output/Weight
04/19/25 04/19/25 04/20/25
06:59 18:59 06:59
Intake Total 120 / 120
Balance 120 / 120
SaO2: 98 (RA)
Physical Exam
-
General: Awake, Oriented and AOx3
Cardiovascular: Regular rate & rhythm, No Murmurs and Other (crisp mechanical click)
Respiratory: Decreased Breath Sounds (at bases, otherwise clear)
Sternum: Stable
Incision: Clean, Dry, Intact and Dressing Intact
Extremities: Other (+trace edema)
Data Reviewed
-
Lab Results: Results Reviewed
Medications: Active Meds Reviewed
Chest X-Ray: Report Reviewed and Image Reviewed
ECG: Report Reviewed and Image Reviewed
--- NOTE | 2025-04-20 05:00 | PTCARENOTE ---
no changes in assessment, VSS. SR w 1st degree AVB + BBB, HR 70s. POX 98% on room air. Heparin gtt maintained per orders. all surgical sites stable. AM labs drawn and sent. pt sleeping between care.
[2025-04-20 05:16] LABS: Hematocrit 34.7 % (39.0-52.0); Hemoglobin 12.6 g/dL (13.0-18.0); Mean Corp Hgb Conc. 36.3 g/dL (33.0-37.0); Mean Corpuscular Volume 84.2 fL (80.0-94.0); Platelet Count 185 10^3/uL (130-400); Red Cell Dist. Width 12.4 % (11.5-14.5)
[2025-04-20 05:25] LABS: INR 1.39; PT 17.2 Sec (11.4-14.6)
[2025-04-20 05:27] LABS: APTT 81.9 Sec (23.4-35.0)
[2025-04-20 06:13] LABS: Blood Urea Nitrogen 24 mg/dl (9-20); Calcium 8.3 mg/dl (8.4-10.2); Carbon Dioxide 24 mmol/L (22-30); Chloride 107 mmol/L (98-107); Estimated Creatinine Clearance 109 ml/min; Glucose 105 mg/dl (70-99); Magnesium 2.3 mg/dl (1.6-2.3); Potassium 4.1 mmol/L (3.5-5.1); Sodium 135 mmol/L (135-145); eGFR > 60.00
[2025-04-20] MEDS: ROXICODONE 5 MG PO (06:22)
[2025-04-20] MEDS: TYLENOL 975 MG PO ×3 (06:22→21:17)
[2025-04-20] MEDS: PROTONIX 40 MG PO (08:16)
[2025-04-20] MEDS: LOW STRENGTH ASPIRIN 81 MG PO (08:16)
[2025-04-20] MEDS: MUCINEX 600 MG PO ×2 (08:17→19:57)
[2025-04-20] MEDS: PACERONE 200 MG PO ×2 (08:17→19:57)
[2025-04-20] MEDS: LIDOCAINE 4% PATCH TOPICAL (08:17)
[2025-04-20] MEDS: SENOKOT PO ×2 (08:17→20:21)
[2025-04-20] MEDS: FARXIGA 10 MG PO (08:17)
[2025-04-20] MEDS: TOPROL XL 50 MG PO (08:17)
[2025-04-20] MEDS: NEURONTIN 100 MG PO ×3 (08:17→21:17)
--- NOTE | 2025-04-20 09:00 | PTCARENOTE ---
Assumed care of patient at 0645. Assessment completed and documented in shift assessment.
Patient remains on Heparin drip at 1400units/hour, INR still sub-therapeutic. Pending INR/PTT check at 11:00. OOB to chair. Plan for potential D/C tomorrow if INR is in therapeutic range, to receive 7.5mg of Coumadin this evening.
[2025-04-20] MEDS: NSS IV (10:48)
[2025-04-20 11:36] LABS: INR 1.68; PT 19.9 Sec (11.4-14.6)
[2025-04-20 11:44] LABS: APTT 161.2 Sec (23.4-35.0)
--- NOTE | 2025-04-20 13:00 | PTCARENOTE ---
Assessment unchanged. Heparin drip paused for one hour, restarted at 1200units/hour at 12:50.
[2025-04-20] MEDS: COUMADIN 7.5 MG PO (17:05)
[2025-04-20] MEDS: COZAAR 25 MG PO (17:06)
--- NOTE | 2025-04-20 17:45 | PTCARENOTE ---
Assessment unchanged at this time.
[2025-04-20 19:00] LABS: APTT 119.0 Sec (23.4-35.0)
--- NOTE | 2025-04-20 20:00 | PTCARENOTE ---
Assumed care of patient at 1900. Patient found resting in bed at time of assessment. Patient is AOx4, follows commands appropriately, moves all extremities. Lung sounds are clear and equal bilaterally, saO2 96% on RA. Heart sounds are audible,
patient is SR with first deg AV block and LBBB. Click is audible on auscultation. Normal palpable pulses and no edema. Patient has active BS and is voiding. There is a sternal incision with aquacell dressing that is CDI and 4x4 gauze dressing over
CT wounds that is CDI. Patient has L AC 18G and L wrist 22G receiving heparin at 1100. Patient reporting difficulty sleeping, CT PA notified xanax dose added HS. Call ahmadi within reach.
[2025-04-20] MEDS: REMOVE LIDOCAINE PATCH REMOVE (20:21)
[2025-04-20] MEDS: XANAX 0.5 MG PO (21:17)
--- NOTE | 2025-04-21 | PTCARENOTE ---
Patient reassessed. VSS. Given Xanax 0.5 HS for sleep. Call ahmadi within reach.
[2025-04-21] MEDS: HEPARIN 25000 UNITS/250 ML IV (03:00)
[2025-04-21 03:12] VITALS: BP 128/86
[2025-04-21 03:43] LABS: INR 2.23; PT 24.9 Sec (11.4-14.6)
[2025-04-21 03:46] LABS: APTT 139.3 Sec (23.4-35.0)
--- NOTE | 2025-04-21 03:59 | W.PN.CT ---
Today's Communication / Plan
-
Plan:
-No major issues overnight. Hemodynamically and neurologically intact
-Was on Heparin to Coumadin bridge. Heparin d/c'd this AM
-INR 2.23 this AM after 7.5 mg Coumadin last night (daily dosin.5/2.5/5/10/7.5 mg). INR was 1.39/1.68 yesterday
-Tolerating increased Toprol XL 50 qd for htn
-Noted new 1st degree AVB and LBBB postop
-Cont. current meds (ASA, Coumadin, Toprol 50 qd, Amio, Losartan 25 qd, Mucinex, Gabapentin, Protonix)
-Encourage use of IS
-OOB into chair/Ambulate
-D/C home today, f/u INR as outpt.
Assessment / Plan
-
Assessment:
-S/P Median sternotomy/AVR (#25 On-X)/ELAA (35mm AtriClip), by Dr. Valencia, 04/15/25, pod#6
-Bicuspid aortic valve/Severe AI
-LVEF 42% per intraop ZAKI
-HTN
-HLD
-Former tobacco use
-S/p cardiac cath, 04/08/25
-Acute postop blood loss/Anemia (stable with blood transfusion)
-Acute postop thrombocytopenia (stable, no active bleed)
-Acute postop atelectasis
-Acute postop hypovolemia with subsequent hypervolemia
-Acute postop 1st degree AV block and LBBB
Discussed patient care with: Cardiology, Nursing, Respiratory Therapy, Pharmacy and Care Team
Subjective
-
Date of Service: April 21, 2025
Pt c/o mild incisional pain, otherwise feels well
Objective Data
-
Lab Results
04/20/25 04:54
04/20/25 04:54
PT Cancelled 12/07/25 03:12
INR Cancelled 04/21/25 03:12
APTT 119.0 Sec (23.4-35.0) H 04/20/25 18:33
Vital Signs
Vital Signs
Temp Pulse Resp BP Pulse Ox
98.7 F 89 20 140/94 98
04/20/25 23:00 04/20/25 23:00 04/20/25 23:00 04/20/25 21:20 04/20/25 23:00
CT Intake/Output/Weight
04/20/25 04/20/25 04/21/25
06:59 18:59 06:59
Intake Total
Balance
SaO2: 98 (RA)
Physical Exam
-
General: Awake, Oriented and AOx3
Cardiovascular: Regular rate & rhythm, No Murmurs, No Rub and No Gallop
Respiratory: Decreased Breath Sounds (at bases, otherwise clear)
Sternum: Stable
Incision: Clean, Dry, Intact and Dressing Intact
Extremities: Other (+trace edema)
Data Reviewed
-
Lab Results: Results Reviewed
Medications: Active Meds Reviewed
Chest X-Ray: Report Reviewed and Image Reviewed
ECG: Report Reviewed and Image Reviewed
--- NOTE | 2025-04-21 05:01 | PTCARENOTE ---
Patient reassessed. VSS. AM labs obtained. INR therepeutic this morning. CT MATTHIAS notified, heparin gtt dc'd. Call ahmadi within reach.
[2025-04-21 06:00] VITALS: BMI 27.7
[2025-04-21] MEDS: TYLENOL 975 MG PO (06:01)
[2025-04-21 07:57] VITALS: BP 129/81
[2025-04-21] MEDS: FARXIGA 10 MG PO (08:01)
[2025-04-21] MEDS: NEURONTIN 100 MG PO (08:01)
[2025-04-21] MEDS: PACERONE 200 MG PO (08:01)
[2025-04-21] MEDS: MUCINEX 600 MG PO (08:01)
[2025-04-21] MEDS: PROTONIX 40 MG PO (08:01)
[2025-04-21] MEDS: LOW STRENGTH ASPIRIN 81 MG PO (08:01)
[2025-04-21] MEDS: TOPROL XL 50 MG PO (08:01)
[2025-04-21] MEDS: SENOKOT PO (08:01)
[2025-04-21] MEDS: LIDOCAINE 4% PATCH TOPICAL (08:02)
--- NOTE | 2025-04-21 09:05 | PTCARENOTE ---
Assumed care of patient at 0645. Assessment completed in shift assessment.
Patient now off Heparin drip, INR therapeutic. For repeat INR check at 10:00, likely home today per cardiothoracic surgery.
--- NOTE | 2025-04-21 09:22 | W.DCSUMMARY ---
Discharge Summary
Discharge Data
Date of Admission: 04/15/25
Date of Discharge: 04/21/25
-
Pending Results: No
Hospital Course
Primary care physician: David De Santiago
Outpatient software programmer: Samuel Lim
Inpatient consultants: [facility] cardiology, pulmonary flying shear operator
Procedures:
1. Mechanical aortic valve replacement and left atrial appendage clip (04/15/25)
Primary Diagnosis:
1. Bicuspid aortic valve with severe aortic insufficiency
Secondary Diagnoses:
1. HTN
2. HLD
-Acute postop blood loss/Anemia (stable with blood transfusion)
-Acute postop thrombocytopenia (stable, no active bleed)
-Acute postop respiratory insufficiency
-Acute postop atelectasis
-Acute postop hypovolemia with subsequent hypervolemia
-Acute postop 1st degree AV block and LBBB
HPI: Neal Taveras is a 50 year old male who was electively admitted on 04/15/2025 for an aortic valve replacement and left atrial Penders clip due to fatigue, worsening dyspnea on exertion from a bicuspid aortic valve and severe aortic
insufficiency. Preop catheterization reported no coronary artery disease.
Hospital course: Patient was taken to the operating room and underwent an AVR #25 mm On�X mechanical valve and left atrial appendage #[address] Ignacio Valencia. Postprocedure ZAKI reported an EF of 42% with AV mean gradient of 10 mmHg. For
further details, please see operative report. Patient received no intraoperative blood products and returned to CVICU on Levophed, Precedex, and insulin. Postoperative ECG reported sinus rhythm with first degree and new left bundle branch block.
Patient was extubated on day of surgery. On postoperative day 1, beta-marina was initiated and home losartan resumed. He was diuresed with 20 mg of IV Lasix and received 2.5 mg of Coumadin (as on concomitant Amiodarone for atrial fibrillation
prophylaxis) for INR goal of 2�3 for 3 months, then may target 1.5-2 for lifetime goal with aspirin monotherapy. Two mediastinal chest tubes were discontinued on postoperative day #2. Patient was further diuresed with 40 mg of IV Lasix twice
daily. On postoperative day #3, Toprol dose was uptitrated to 50 mg daily due to hypertension and elevated heart rate. Patient ambulated in halls without difficulty. On postoperative day #4, INR remained at 1.1 and heparin infusion was initiated.
Patient was dosed with 10 mg of Coumadin. He was ordered melatonin for sleep. A predischarge, two-view chest x-ray reported no pulmonary abnormality. On postoperative day #5, the INR began increasing (1.68) and patient was ordered 7.5 mg of
Coumadin. A predischarge TTE reported an EF of 50%, AV gradients of 16/9 mmHg, moderate AI and ascending aorta 4.4 cm.On postoperative day #6, INR was therapeutic at 2.2. IV heparin was discontinued. One bipolar ventricular epicardial pacing wire
was clipped at skin level. A repeat INR at 10 AM was 2.1. Patient will be discharged home on Coumadin on 7.5 mg daily. He will be seen by transitional nurse team with follow-up INR on 04/22/2025 and CBC in 1 week that will be reported to Dr. Douglas.
Home medication changes:
Pain regimen: prn Tylenol, Oxycodone, cyclobenzaprine + scheduled gabapentin x 10 days
furosemide 20mg daily prn weight gain
Protonix for GI protection on warfarin/Coumadin
Discharge Plan
-
Patient Disposition: Home (Routine Discharge)
Discharge Diagnosis/Procedures: mechanical AVR (#25 On-X) and ELAA (35mm AtriClip) on 04/15/25
Condition: Good
Diet: Low Cholesterol, 2 Gram Sodium and Restrict fluids to 64 oz
Activity: No strenuous activity
Driving Restrictions: Not until seen by your Dr
Bathing Restrictions: OK to Shower
Blood Work: INR 04/22/25, CBC in 1 week
Other Services: Cardiac Rehab
Specialty Instructions: Weigh Daily- Call MD for wt gain/loss 3 lbs overnight/5 lbs in 1 week
Activity Restrictions/Additional Instructions:
ACTIVITY:
-No strenuous activity: no heavy lifting, pushing, pulling anything over 15 pounds for one month
-continue to use stairs as tolerated
DRIVING RESTRICTIONS:
-No driving for one month or until approved by your surgeon
WOUND CARE:
-Shower daily. Use soap & water.
-No lotions, creams or powders on incision area.
DIET:
-continue a low fat/low cholesterol diet.
-IF you are diabetic, continue carb controlled diet.
CARDIAC REHAB:
-Please make appointment to start in 5-6 weeks with your local hospital program. (See Cardiac Rehabilitation Discharge Booklet).
SPECIALTY INSTRUCTIONS:
-Weigh yourself daily. Call your physician for any weight gain/loss of 3 lbs overnight or 5 lbs in one week.
-REPORT any clicking noise or uneven appearance of your sternum to your surgeon immediately.
-If you smoke, you are instructed to quit. The [place] smoking hotline phone number is [phone]
CARDIAC REHAB:
Please call [facility] to schedule Cardiac Rehab appointment. [phone]
Referrals:
CT Transitional Care Nurse [Outside]
Referral Note: The Cardiothoracic Transitional Care Nurse will call you to set up a visit in 1-2 days.
David De Santiago MD [Family Provider, Family Practice]
Samuel Lim DO [Active, Cardiology] - 06/07/25 4:00 pm
Ignacio Valencia MD [Active, Cardiac Surgery] - 05/21/25 2:00 pm
Additional Discharge Medication Instructions: Lasix as needed for fluid retention
Pain regimen: prn Tylenol, Oxycodone, cyclobenzaprine + scheduled gabapentin x 10 days
Protonix for GI protection on warfarin/Coumadin
Prescriptions:
New
cyclobenzaprine 10 mg Tablet
5 mg PO Q8HPRN PRN (Reason: muscle spasm) Qty: 10 0RF
metoprolol succinate 50 mg Tablet Extended Release 24 Hr
50 mg PO DAILY Qty: 30 2RF
pantoprazole 40 mg Tablet,Delayed Release (Dr/Ec)
40 mg PO DAILY Qty: 30 2RF
aspirin 81 mg Tablet,Chewable
81 mg PO DAILY Qty: 0 0RF
gabapentin 100 mg Capsule
100 mg PO TID Qty: 30 0RF
oxycodone 5 mg Tablet
5 mg PO Q4HPRN PRN (Reason: severe pain) Qty: 10 0RF
dapagliflozin propanediol 10 mg Tablet
10 mg PO DAILY Qty: 30 2RF
acetaminophen 325 mg Tablet
650 mg PO Q4HPRN PRN (Reason: mild pain,headache,temp >101F ) Qty: 0 0RF
furosemide [Lasix] 20 mg tablet
20 mg PO .daily prn Qty: 7 0RF
Rx Instructions:
Take1 tab daily as needed for weight gain of 3 pounds in a day or 5 pounds in a week
warfarin 7.5 mg tablet
7.5 mg PO DAILY Qty: 30 2RF
Continued
Red Yeast Rice Gummy
2 gummy PO DAILY
losartan 25 mg Tablet
25 mg PO QPM
Discontinued
furosemide [Lasix] 40 mg tablet
40 mg PO DAILY
Discharge Orders:
Discharge Patient (As Directed); Ordered 04/21/25
Ordered By: Erica Albright
Care Plan Goals
Care Plan Goals:
Problem: Readiness for enhanced knowledge related to diagnosis and treatment plan
Goal: Understand your diagnosis and treatment plan needs, including medications if applicable.
Instructions: Know your diagnosis, underlying causes and treatment plan options, including medications if applicable. Consult with your health care team to learn about your diagnosis and treatment plan, including medications if applicable.
Discharge Date and Time
Discharge Date/Time: 04/21/25 11:45
Print Language: GUYANESE
--- NOTE | 2025-04-21 10:27 | W.PN.UPDATE ---
Update Note
Progress Note Update
No pacing required since surgery. One bipolar ventricular epicardial pacing wire was clipped at skin level.
[2025-04-21] MEDS: NSS IV (10:30)
--- NOTE | 2025-04-21 10:30 | PTCARENOTE ---
V-wire cut at bedside by SILVANO Ureña.
[2025-04-21 10:37] LABS: INR 2.11; PT 23.8 Sec (11.4-14.6)
== END 2025-04-21 11:45 | disposition home or self-care (01) | DRG 220 ==
LOC: CVICU 04:53
PROVIDERS: Anesthesiology; Nurse Practitioner; ADMITTING PHYSICIAN Thoracic Surgery (Cardiothoracic Vascular Surgery); CONSULT PHYSICIAN Internal Medicine; CONSULT PHYSICIAN Student in an Organized Health Care Education/Training Program; FAMILY PHYSICIAN Family Medicine
PROC: 02RF0JZ Replacement of Aortic Valve with Synthetic Substitute, Open Approach (ICD-10-PCS; 2025-04-15)
PROC: 5A1221Z Performance of Cardiac Output, Continuous (ICD-10-PCS; 2025-04-15)
PROC: 02L70CK Occlusion of Left Atrial Appendage with Extraluminal Device, Open Approach (ICD-10-PCS; 2025-04-15)
PROC: B24BZZ4 Ultrasonography of Heart with Aorta, Transesophageal (ICD-10-PCS; 2025-04-15)
DX: I35.1 Nonrheumatic aortic (valve) insufficiency (principal); D62 Acute posthemorrhagic anemia; J98.11 Atelectasis; I42.8 Other cardiomyopathies; I10 Essential (primary) hypertension; E78.00 Pure hypercholesterolemia, unspecified; Q23.81 Bicuspid aortic valve; D69.59 Other secondary thrombocytopenia; R06.89 Other abnormalities of breathing; E86.1 Hypovolemia; I44.0 Atrioventricular block, first degree; I44.7 Left bundle-branch block, unspecified; E87.70 Fluid overload, unspecified; R00.1 Bradycardia, unspecified; I25.2 Old myocardial infarction
CPT/HCPCS: 36415; 71045; 71046; 80048; 80053; 81003; 81015; 82248; 82330; 82565; 82805; 82810; 82947; 82962; 83036; 83605; 83735; 84132; 84302; 84520; 85014; 85018; 85025; 85027; 85049; 85610; 85730; 86850; 86900; 86901; 86920; 87070; 88305; 88311; 93005; 93306; 93312; 93320; 93325; 94002; 94010; J1250; P9047